=== PATIENT | male | born 1940 | race Caucasian/White ===

== ENCOUNTER 2021-04-26 14:57 | Inpatient (IN) | payer MEDICARE, SELFPAY ==
[2021-04-26] VITALS (30 sets, daily range): BP systolic 132–174; BP diastolic 66–99; PULSE 67–92; RESP 14–21; TEMP 36.2–36.8; O2SAT 92–97
[2021-04-26 15:09] LABS: Bilirubin Negative (Negative); Blood Negative (Negative); Clarity Clear (Clear); Glucose 100 mg/dL (Negative); Ketones Negative (Negative); Leukocyte Esterase Negative (Negative); Nitrite Positive (Negative); Specific Gravity <= 1.005 (1.005-1.025); pH 5.5 (5-8)
[2021-04-26 15:17] LABS: Bacteria Rare HPF (Negative); C & S Indicated? Yes; Casts Negative LPF (Negative); Crystals Negative HPF (Negative); Epithelial Cells Rare HPF (Negative); Mucus Negative (Negative); RBC Negative HPF (0-2); WBC 0-2 HPF (0-5)
--- NOTE | 2021-04-26 15:45 | DI.CT_ITS ---
Exam(s) CT RENAL COLIC WO EXAM: CT RENAL COLIC WO CLINICAL HISTORY: pain left flank, dysuria. TECHNIQUE: Imaging Protocol: Axial computed tomography images with coronal and sagittal reformatted images were created and reviewed. CONTRAST MATERIAL: Noncontrast COMPARISON: No exams were available for comparison FINDINGS: ABDOMEN: Lung Bases: Mild emphysematous changes. dependent changes. Enlarged heart. Liver: Normal attenuat ion. Cysts.. Gallbladder and biliary tract: Status post cholecystectomy. No radiodense calculus or dilation. Pancreas: Normal density, no calcifications or inflammatory process. Spleen: Calcifications. L. Kidneys: Normal size, contour and axis. No radiodense stones or obstructive uropathy. Cyst mid right kidney. Adrenal glands: No masses seen. Abdominal Aorta: Abdominal portion non-dilated. PELVIS: Bladder: Symmetric distention, no gross wall thickening. No stones or focal mass. Enlarged prostate . Bowel: No obstruction or bowel wall thickening. Severe diverticulosis lower descending and sigmoid co yolanda. No evidence of diverticulitis. Trace fluid in the low pelvis. Appendix normal. Stomach and s mall bowel unremarkable. No free air. Soft tissues: Tiny umbilical hernia containing fat. Small fatty containing hernia superior to the um bilicus. Bones: Degenerative changes and scoliosis. Mild to moderate T11 compression fracture with chronic ap pearance. IMPRESSION: Severe diverticulosis. No evidence of diverticulitis. No evidence of renal calculi or hydronephrosi s. Enlarged prostate. RADIATION DOSE DELIVERED: 950.75mGy.cm Total DLP DATA REPOSITORY: All CT scans at this facility are submitted to the National Radiology Data Registry (NRDR) Dose Index Registry (DIR) with the [employer] (A[employer]). RADIATION OPTIMIZATION: All CT scans at this facility use at least one of these dose optimization te chniques: automated exposure control; mA and/or kV adjustment per patient size (includes targeted exa ms where dose is matched to clinical indication); or iterative reconstruction.
[2021-04-26 15:49] LABS: Lactate 0.7 mmol/L (0.6-1.4)
[2021-04-26 15:51] LABS: Abs Immature Grans 0.08 10^3/uL (0.0-0.06); Absolute Lymphocyte Count 1.42 10^3/uL (1.2-3.4); Basophils % 0.3; Eosinophils % 0.3; HGB 13.4 g/dL (13.5-17.5); Immature Grans % 0.5; Lymphocytes % 9.6; MCH 30.8 pg (27.0-33.0); MCHC 33.5 % (32.0-36.0); MPV 10.5 fL (8.0-11.0); Monocytes % 6.6; Neutrophils % 82.7; Nucleated RBC 0 %; Platelet Count 106 10^3/uL (130-400); RBC 4.35 10^6/uL (4.36-5.78); RDW-SD 43.8 fL; WBC 14.76 10^3/uL (4.4-10.8)
[2021-04-26 15:55] LABS: Absolute Basophil Count 0.04 10^3/uL (0.0-0.2); Absolute Eosinophil Count 0.04 10^3/uL (0.0-0.7); Absolute Monocyte Count 0.97 10^3/uL (0.1-0.8); Absolute Neutrophil Count 12.21 10^3/uL (1.2-6.7)
[2021-04-26] MEDS: cefTRIAXone 2 GM/50 ML BAG IVPB (16:12)
--- NOTE | 2021-04-26 16:12 | ED.GENADUL_ITS ---
Discharge Plan Disposition Patient Disposition: [facility] INPATIENT Condition: Serious Discharge Details Chief Complaint: Urinary Clinical Impression: Acute pyelonephritis, Prostate enlargement Primary Care Provider: Matt Soler ED Provider: Jack Saha Home Meds and New Rx's Prescriptions: No Action VITAMIN B-12 1,000 MCG/ML VIAL 1 ml IM QMO. 90 Days RF: 3 multivitamin Tablet 1 tab PO QAM RF: 0 ciprofloxacin HCl 500 mg Tablet 500 mg PO BID RF: 0 diltiazem HCl 120 mg Capsule,Extended Release 12 Hr 120 mg PO BID RF: 0 phenazopyridine [Pyridium] 100 mg Tablet 200 mg PO TID PRNRF: 0 aspirin 81 mg Tablet 81 mg PO QPM RF: 0 metoprolol succinate 50 mg Tablet Extended Release 24 Hr 50 mg PO DAILY RF: 0 primidone 250 mg Tablet 250 mg PO BID RF: 0 metoprolol succinate 25 mg Tablet Extended Release 24 Hr 25 mg PO DAILY RF: 0 lisinopril 40 mg Tablet 40 mg PO DAILY RF: 0 Medical Decision Making 0??80-year-old male with history of renal stones, here with left flank pain, dysuria, fever and chills. Patient has been on ciprofloxacin since he was seen and treated for urinary tract infection at outside hospital ED yesterday. He received 3 doses of antibiotic and symptoms have persisted. Concern for pyonephritis and potential resistance to ciprofloxacin. Consider obstructed stone. Plan to obtain CT renal protocol. I will initiate treatment with broad-spectrum antibiotic ceftriaxone 2 g IV. Will initiate IV fluid. I offered analgesic and patient declined. Initial labs reviewed and lactate normal. Leukocytosis noted. 1747 --CT of the abdomen pelvis was interpreted by radiology:IMPRESSION: 1. Bilateral perinephric stranding. No evidence for nephrolithiasis or hydronephrosis. 2. Moderate to severe enlargement of the prostate which may be invading the base of the urinary bladder. 3. Edema/inflammatory changes of the mesentery. Pain that is patient reassessed and noted to be feeling a little bit better after IV fluid and antibiotic. Plan to admit for continued IV antibiotics and will benefit from urology consultation. I called and spoke with the hospitalist, Dr. Romero, I discussed ED presentation course including diagnostics, he will admit the patient. Medical Records Medical records reviewed: Yes I reviewed the patient's medical records. Medical records narrative: I obtained emergency department note from 04/25/21 urinalysis revealed WBCs 25-50, RBC 0-3, positive nitrite, 0-3 squamous epithelial cells. HPI General Mode of arrival: ambulatory . Date/Time Provider Initiated Documentation: 04/26/21 15:01 . Limitations to Documentation: no limitations . Information obtained by: patient . HPI Narrative: 80-year-old male with history of renal stone, here with chief complaint of flank pain. Patient has left flank/back pain that started a couple weeks ago. Pain was initially intermittent and now more persistent. Pain worse with certain positions including bending and twisting. Pain is described as sharp. He has associated fever, chills and dysuria over the past few days. He was seen at [facility] emergency department yesterday and was found to have urinary tract infection and was started on ciprofloxacin. Patient has taken 3 doses of ciprofloxacin and symptoms are persisting today. He feels dehydrated. No nausea or vomiting. He continues to have dysuria. Related Data Home Medications Medication Instructions Recorded Confirmed Vitamin B-12 1 ml IM QMO. 90 Days 09/27/08 04/26/21 aspirin 81 mg PO QPM 04/26/21 04/26/21 ciprofloxacin HCl 500 mg PO BID 04/26/21 04/26/21 diltiazem HCl 120 mg PO BID 04/26/21 04/26/21 lisinopril 40 mg PO DAILY 04/26/21 04/26/21 metoprolol succinate 25 mg PO DAILY 04/26/21 04/26/21 metoprolol succinate 50 mg PO DAILY 04/26/21 04/26/21 multivitamin 1 tab PO QAM 04/26/21 04/26/21 phenazopyridine [Pyridium] 200 mg PO TID PRN 04/26/21 04/26/21 primidone 250 mg PO BID 04/26/21 04/26/21 Allergies Allergy/AdvReac Type Severity Reaction Status Date / Time No Known Allergies Allergy Unverified 04/26/21 15:12 General Stated Complaint: Urinary VITA: 3 Review of Systems All systems reviewed & are unremarkable except as noted in HPI and below Constitutional Constitutional: Reports chills and Reports fever(s) Gastrointestinal Gastrointestinal: Denies nausea and Denies vomiting [facility] Medical History (Updated 04/26/21 @ 17:50 by Jack Saah MD) Atrial fibrillation Renal stones Social History Smoking/Tobacco Use Status: Former Tobacco Use Smoking risk assessment performed?: Yes Alcohol Intake: current Alcohol Intake frequency: 0-2 drinks per day Drug use: Never Substance use type: does not use Do you feel safe at home: Yes Do you feel safe in your relationship?: Yes Exam Const General: cooperative and no acute distress HENMT Mouth: mucous membranes dry Eyes Conjunctivae: normal conjunctivae Sclera: normal sclerae Neck Neck: full ROM Resp Auscultation: clear to auscultation bilaterally, no rales, no rhonchi and no wheezes Cardio Rate: regular rate and not tachycardic Rhythm: regular rhythm GI Palpation: soft, not firm, no guarding, no masses, not rigid and nontender Skin General skin exam: no rashes or lesions noted Neuro General: patient alert, patient awake, patient oriented x3 and tone normal Extrem General: no edema Psych Appearance: grossly normal Mental Status: mental status grossly normal Course Vital Signs Vital signs: Vital Signs Temperature 36.8 C 04/26/21 15:02 Pulse 90 04/26/21 15:02 Respiratory Rate 16 04/26/21 15:02 Blood Pressure 153/82 H 04/26/21 15:02 Pulse Oximetry 95 04/26/21 15:02 Temperature 36.8 C 04/26/21 15:02 Temperature Source Skin 04/26/21 15:02 Pulse 90 04/26/21 15:02 Respiratory Rate 16 04/26/21 15:02 Blood Pressure 153/82 H 04/26/21 15:02 Blood Pressure Position Sitting 04/26/21 15:02 Pulse Oximetry 95 04/26/21 15:02 Oxygen Delivery Method Room Air 04/26/21 15:02 Oxygen Flow Rate 0 04/26/21 15:02 Pain Level 9 04/26/21 15:02 Lab/Test Results Lab/Test Results: 04/26/21 16:05 Blood Blood Culture - Pending 04/26/21 15:39 Blood Blood Culture - Pending 04/26/21 15:00 Urine - Reflex from Ua Urine Culture - Pending Laboratory Tests Range/Units 04/26/21 04/26/21 04/26/21 15:00 15:39 15:39 WBC (4.4-10.8) 10^3/uL 14.76 H RBC (4.36-5.78) 10^6/uL 4.35 L Hgb (13.5-17.5) g/dL 13.4 L Hct (40.0-50.0) % 40.0 MCV (80-95) fL 92.0 MCH (27.0-33.0) pg 30.8 MCHC (32.0-36.0) % 33.5 RDW (11.8-14.1) % 13.0 Plt Count (130-400) 10^3/uL 106 L MPV (8.0-11.0) fL 10.5 Immature Gran % 0.5 Neutrophils % 82.7 Lymphocytes % 9.6 Monocytes % 6.6 Eosinophils % 0.3 Basophils % 0.3 Nucleated RBC % % 0 Absolute Neutrophils (1.2-6.7) 10^3/uL 12.21 H Absolute Lymphocytes (1.2-3.4) 10^3/uL 1.42 Absolute Monocytes (0.1-0.8) 10^3/uL 0.97 H Absolute Eosinophils (0.0-0.7) 10^3/uL 0.04 Absolute Basophils (0.0-0.2) 10^3/uL 0.04 VBG Lactate (0.6-1.4) mmol/L 0.7 Urine Color (Yellow) Dark Yellow Urine Clarity (Clear) Clear Urine pH (5-8) 5.5 Ur Specific [place] (1.005-1.025) <= 1.005 Urine Protein (Negative) mg/dL Negative Urine Ketones (Negative) mg/dL Negative Urine Blood (Negative) Negative Urine Nitrite (Negative) Positive H Urine Bilirubin (Negative) Negative Urine Urobilinogen (Up TO 0.2) EU/dL 1.0 H Ur Leukocyte Esterase (Negative) Negative Urine RBC (0-2) HPF Negative Urine WBC (0-5) HPF 0-2 Ur Epithelial Cells (Negative) HPF Rare Urine Crystals (Negative) HPF Negative Urine Bacteria (Negative) HPF Rare Urine Casts (Negative) LPF Negative Urine Mucus (Negative) Negative Ur Culture Indicated? Yes Urine Glucose (Negative) mg/dL 100
[2021-04-26] MEDS: Normal Saline 1,000 ML 150 ML IV ×2 (16:13→23:48)
[2021-04-26 16:30] LABS: ALT 36 U/L (16-63); AST 19 U/L (15-37); Albumin 3.5 g/dL (3.4-5.0); Alkaline Phosphatase 96 U/L (46-116); Anion Gap 6.8 mmol/L (3-11); BUN 15 mg/dL (7-18); Bilirubin, Total 0.9 mg/dL (0.2-1.0); CO2 28.2 mmol/L (21.0-32.0); Calcium 8.2 mg/dL (8.5-10.1); Chloride 103 mmol/L (98-107); Glucose 105 mg/dL (74-106); Potassium 3.6 mmol/L (3.5-5.1); Sodium 138 mmol/L (136-145); Total Protein 7.3 g/dL (6.4-8.2)
--- NOTE | 2021-04-26 17:02 | DI.VRAD_ITS ---
PROCEDURE INFORMATION: Exam: CT Abdomen And Pelvis Without Contrast Exam date and time: 04/26/2021 4:00 PM Age: 80 years old Clinical indication: Patient HX: Left flank pain, dysuria, HX of kidney stones, TECHNIQUE: Imaging protocol: Computed tomography of the abdomen and pelvis without contrast. Radiation optimization: All CT scans at this facility use at least one of these dose optimization techniques: automated exposure control; mA and/or kV adjustment per patient size (includes targeted exams where dose is matched to clinical indication); or iterative reconstruction. COMPARISON: No relevant prior studies available. FINDINGS: Limitations: Evaluation of the solid organs and vasculature is limited wiithout IV contrast. Lungs: There are ground-glass opacities at the lung bases which may represent pulmonary vascular congestion. Liver: 3.5 cm cyst in the left lobe of the liver. 16 mm cyst in the inferior right lobe of the liver. No evidence for a mass. Gallbladder and bile ducts: There has been a cholecystectomy. Pancreas: Unremarkable. No ductal dilation. Spleen: There is a calcification in the spleen. No splenomegaly. Adrenal glands: Normal. No mass. Kidneys and ureters: Bilateral perinephric stranding. No evidence for nephrolithiasis or hydronephrosis. There is a cyst in the right kidney. Stomach and bowel: Unremarkable. No obstruction. No mucosal thickening. Appendix: No evidence of appendicitis. Intraperitoneal space: There is edema/inflammatory changes of the mesentery. No free air. No significant fluid collection. Vasculature: The vasculature demonstrates diffuse moderate atherosclerotic calcification. There is no aortic aneurysm. Lymph nodes: Unremarkable. No enlarged lymph nodes. Urinary bladder: The enlarged prostate may be invading the base of the urinary bladder. Reproductive: The prostate demonstrates moderate to severe nonspecific enlargement. Bones/joints: There are degenerative changes of the lumbosacral spine with levoscoliosis. There is T11 compression deformity with loss of 50-60% of vertebral body height. Soft tissues: Unremarkable. IMPRESSION: 1. Bilateral perinephric stranding. No evidence for nephrolithiasis or hydronephrosis. 2. Moderate to severe enlargement of the prostate which may be invading the base of the urinary bladder. 3. Edema/inflammatory changes of the mesentery. Dictated and Authenticated by: Matt Chao MD. Ordering:DUSTIN Santiago MD
[2021-04-26 17:49] LABS: Source Nasal/Nares
--- NOTE | 2021-04-26 18:22 | HPE_ITS ---
Date of service: 04/26/21 Time of Service: 18:22 Assessment and Plan Assessment and plan (1) Acute pyelonephritis: Start date: 04/26/21 Status: Acute Assessment and plan: This is an 80-year-old gentleman presenting with flank pain and having imaging revealing bilateral pyelonephritis. He was placed on Rocephin 2 g IV with cultures pending. He feels better with IV hydration. He is voiding without change in chronic symptoms and feels that he is emptying h is bladder. There were no signs of urinary retention but he does have a enlarged prostate. Prostate exam was not performed. Patient has been on Cipro as an outpatient with urine obtained in the ED apparently clear but systemic symptoms and pain persisting with positive imaging finding of acute py elonephritis. Patient does have an enlarged prostate but appears to be emptying well. He has been urinating throughout the night with IV hydration. (2) Prostate enlargement: Status: Chronic Assessment and plan: Patient appears to be urinating well at this time but should consider prostate exam and possible urological referral if question of obstruction of the bladder outlet which may prompt recurrent UTIs of the upper tract. (3) Chronic atrial fibrillation: Status: Chronic Assessment and plan: Patient's heart rate appears to be controlled with blood pressure slightly elevated. Continue outpatient medical therapy with diltiazem and metoprolol. Patient is not anticoagulated. History of Present Illness History of Present Illness Chief Complaint: Fever with dysuria and flank pain Narrative: This is an 80-year-old male patient reported to the ED with continued flank pain more over his right than left side. He does have a history of renal lithiasis with CT scan of the abdomen and pelvis in the ED revealing no obstruction though the prostate was enlarged and slightly invading the base of the bladder. Is been having symptoms for couple weeks but it escalated just prior to admission with patient having associated fevers and chills with dy suria. He was on ciprofloxacin and failing therapy though this was just initiated. He has been seen in [facility] emergency department the day prior to presenting to this ED. The patient has had no GI symptoms and felt dehydrated with decreased intake. When I saw the patient after some IV hydration he was feeling better. His flank pain was resolving. CT scan did reveal pyelonephritis with some inflammatory changes in the abdomen. As stated there was no obstruction. The patient had no documented fever in the ED though he did have a slightly elevated WBC. Was symptomatic with flank pain. His lactate was negative and his urinalysis appeared benign with cultures as an outpatient pending. Patient was recultured. Review of systems was pertinent for patient having some discomfort over his back worsening with movement. He had no radicular symptoms in his lower extremities. He denied any spinal tenderness. Overnight he has been voiding well on IV hydration. His creatinine was not elevated upon admission. Review of Systems Narrative: 13 point review of systems otherwise unrevealing or stable. [facility] Medical History Atrial fibrillation Renal stones Social History Smoking/Tobacco Use Status: Former Tobacco Use Smoking risk assessment performed?: Yes Alcohol Intake: current Alcohol Intake frequency: 0-2 drinks per day Drug use: Never Substance use type: does not use Do you feel safe at home: Yes Do you feel safe in your relationship?: Yes Meds Allergies and Home Medications Allergies Allergy/AdvReac Type Severity Reaction Status Date / Time No Known Allergies Allergy Unverified 04/26/21 15:12 Home Medications Medication Instructions Recorded Confirmed Type Vitamin B-12 1 ml IM QMO. 90 Days 09/27/08 04/26/21 History aspirin 81 mg PO QPM 04/26/21 04/26/21 History ciprofloxacin HCl 500 mg PO BID 04/26/21 04/26/21 History diltiazem HCl 120 mg PO BID 04/26/21 04/26/21 History lisinopril 40 mg PO DAILY 04/26/21 04/26/21 History metoprolol succinate 25 mg PO DAILY 04/26/21 04/26/21 History metoprolol succinate 50 mg PO DAILY 04/26/21 04/26/21 History multivitamin 1 tab PO QAM 04/26/21 04/26/21 History phenazopyridine [Pyridium] 200 mg PO TID PRN 04/26/21 04/26/21 History primidone 250 mg PO BID 04/26/21 04/26/21 History Exam Narrative Exam Narrative: General: Patient appears appropriate for age, he is hard of hearing, alert and oriented x3 and in no acute distress. HEENT: Normocephalic with balding, eyes with pupils equal and reactive to light symmetrically, extraocular movement intact and sclera anicteric. Oropharynx with dry mucosa. Neck: Supple without JVD. Lungs: Fair aeration and clear to auscultation percussion. Back: Slightly stooped posture with no CVA tenderness. Decreased range of motion with loss of lumbar lordotic curve. Breast: Exam deferred. Heart: Irregular regular rhythm no appreciable murmurs or gallop. Normal rate., soft nontender palpation with no palpable hepatosplenomegaly. Abdomen: Normal contour, soft to palpation with no palpable hepatosplenomegaly. Bowel sounds positive all quadrants. No tenderness over the kidneys. No masses palpated. No guarding or rebound. Genitalia/rectal: Exam deferred. Extremities: Without clubbing, cyanosis or pitting edema. Peripheral pulses intact. Arthritic changes of the lower extremities. Skin: Normal color, warm and dry. Neuro: Cranial nerves II through XII grossly intact with decreased hearing acuity, no focalizing motor deficits. Patient has no tremor. Psych: Normal mood and affect, remote and recent memory appear to be grossly intact. No abnormal thought processes. Results Imaging Imaging Studies: Exam: CT Abdomen And Pelvis Without Contrast Exam date and time: 04/26/2021 4:00 PM Age: 80 years old Clinical indication: Patient HX: Left flank pain, dysuria, HX of kidney stones, TECHNIQUE: Imaging protocol: Computed tomography of the abdomen and pelvis without contrast. Radiation optimization: All CT scans at this facility use at least one of these dose optimization techniques: automated exposure control; mA and/or kV adjustment per patient size (includes targeted exams where dose is matched to clinical indication); or iterative reconstruction. COMPARISON: No relevant prior studies available. FINDINGS: Limitations: Evaluation of the solid organs and vasculature is limited wiithout IV contrast. Lungs: There are ground-glass opacities at the lung bases which may represent pulmonary vascular congestion. Liver: 3.5 cm cyst in the left lobe of the liver. 16 mm cyst in the inferior right lobe of the liver. No evidence for a mass. Gallbladder and bile ducts: There has been a cholecystectomy. Pancreas: Unremarkable. No ductal dilation. Spleen: There is a calcification in the spleen. No splenomegaly. Adrenal glands: Normal. No mass. Kidneys and ureters: Bilateral perinephric stranding. No evidence for nephrolithiasis or hydronephrosis. There is a cyst in the right kidney. Stomach and bowel: Unremarkable. No obstruction. No mucosal thickening. Appendix: No evidence of appendicitis. Intraperitoneal space: There is edema/inflammatory changes of the mesentery. No free air. No significant fluid collection. Vasculature: The vasculature demonstrates diffuse moderate atherosclerotic calcification. There is no aortic aneurysm. Lymph nodes: Unremarkable. No enlarged lymph nodes. Urinary bladder: The enlarged prostate may be invading the base of the urinary bladder. Reproductive: The prostate demonstrates moderate to severe nonspecific enlargement. Bones/joints: There are degenerative changes of the lumbosacral spine with levoscoliosis. There is T11 compression deformity with loss of 50-60% of vertebral body height. Soft tissues: Unremarkable. IMPRESSION: 1. Bilateral perinephric stranding. No evidence for nephrolithiasis or hydronephrosis. 2. Moderate to severe enlargement of the prostate which may be invading the base of the urinary bladder. 3. Edema/inflammatory changes of the mesentery. Dictated and Authenticated by: Matt Chao MD. Labs Result diagrams: 04/27/21 06:10 04/27/21 06:10 Labs: Laboratory Results - last 24 hr 04/26/21 04/26/21 04/26/21 15:00 15:39 15:39 WBC RBC Hgb Hct MCV MCH MCHC RDW Plt Count MPV Immature Gran % Neutrophils % Lymphocytes % Monocytes % Eosinophils % Basophils % Nucleated RBC % Absolute Neutrophils Absolute Lymphocytes Absolute Monocytes Absolute Eosinophils Absolute Basophils VBG Lactate 0.7 Sodium 138 Potassium 3.6 Chloride 103 Carbon Dioxide 28.2 Anion Gap 6.8 BUN 15 Creatinine 1.0 Estimated GFR/1.73 m2 >= 60.00 Glucose 105 Calcium 8.2 L Total Bilirubin 0.9 AST 19 ALT 36 Alkaline Phosphatase 96 Total Protein 7.3 Albumin 3.5 Urine Color Dark Yellow Urine Clarity Clear Urine pH 5.5 Ur Specific [place] <= 1.005 Urine Protein Negative Urine Ketones Negative Urine Blood Negative Urine Nitrite Positive H Urine Bilirubin Negative Urine Urobilinogen 1.0 H Ur Leukocyte Esterase Negative Urine RBC Negative Urine WBC 0-2 Ur Epithelial Cells Rare Urine Crystals Negative Urine Bacteria Rare Urine Casts Negative Urine Mucus Negative Ur Culture Indicated? Yes Urine Glucose 100 COVID-19 Source 04/26/21 04/26/21 15:39 17:45 WBC 14.76 H RBC 4.35 L Hgb 13.4 L Hct 40.0 MCV 92.0 MCH 30.8 MCHC 33.5 RDW 13.0 Plt Count 106 L MPV 10.5 Immature Gran % 0.5 Neutrophils % 82.7 Lymphocytes % 9.6 Monocytes % 6.6 Eosinophils % 0.3 Basophils % 0.3 Nucleated RBC % 0 Absolute Neutrophils 12.21 H Absolute Lymphocytes 1.42 Absolute Monocytes 0.97 H Absolute Eosinophils 0.04 Absolute Basophils 0.04 VBG Lactate Sodium Potassium Chloride Carbon Dioxide Anion Gap BUN Creatinine Estimated GFR/1.73 m2 Glucose Calcium Total Bilirubin AST ALT Alkaline Phosphatase Total Protein Albumin Urine Color Urine Clarity Urine pH Ur Specific [place] Urine Protein Urine Ketones Urine Blood Urine Nitrite Urine Bilirubin Urine Urobilinogen Ur Leukocyte Esterase Urine RBC Urine WBC Ur Epithelial Cells Urine Crystals Urine Bacteria Urine Casts Urine Mucus Ur Culture Indicated? Urine Glucose COVID-19 Source Nasal/Nares Last Vital Signs Temp 36.8 C 04/26/21 15:02 Pulse 69 04/26/21 16:49 Resp 16 04/26/21 15:02 BP 142/75 H 04/26/21 16:49 Pulse Ox 94 04/26/21 17:10
[2021-04-26 18:46] LABS: COVID-19 PCR Negative (Negative)
--- NOTE | 2021-04-26 19:11 | NUR.NOTE ---
Report from YANDY Mcdermott for continued care. Report to YANDY Kothari, Med surg. Room 229.Nursing Note:
[2021-04-26] MEDS: Primidone 250 MG TAB PO (23:49)
[2021-04-26] MEDS: Aspirin 81 MG CHEW PO (23:49)
[2021-04-26] MEDS: dilTIAZem CD 120 MG CAPCR PO (23:49)
[2021-04-26] MEDS: Heparin 5,000 UNITS/ML VIAL 5000 UNITS SC (23:49)
[2021-04-27] VITALS (11 sets, daily range): BP systolic 132–150; BP diastolic 80–91; PULSE 60–84; RESP 17–18; TEMP 35.9–36.7; O2SAT 95–98
[2021-04-27] MEDS: Normal Saline 1,000 ML 150 ML IV ×2 (06:09→14:01)
[2021-04-27 07:02] LABS: Abs Immature Grans 0.05 10^3/uL (0.0-0.06); Absolute Basophil Count 0.05 10^3/uL (0.0-0.2); Absolute Eosinophil Count 0.14 10^3/uL (0.0-0.7); Absolute Lymphocyte Count 0.95 10^3/uL (1.2-3.4); Absolute Monocyte Count 0.67 10^3/uL (0.1-0.8); Absolute Neutrophil Count 7.43 10^3/uL (1.2-6.7); Basophils % 0.5; Eosinophils % 1.5; HCT 36.8 % (40.0-50.0); HGB 12.3 g/dL (13.5-17.5); Immature Grans % 0.5; Lymphocytes % 10.2; MCHC 33.4 % (32.0-36.0); MCV 92.7 fL (80-95); MPV 10.8 fL (8.0-11.0); Monocytes % 7.2; Nucleated RBC 0 %; RBC 3.97 10^6/uL (4.36-5.78); RDW 12.9 % (11.8-14.1); RDW-SD 44.1 fL; WBC 9.27 10^3/uL (4.4-10.8)
[2021-04-27 07:20] LABS: Neutrophils % 80.1; Platelet Count 96 10^3/uL (130-400)
[2021-04-27 07:21] LABS: Diff Comment Diff Reviewed; RBC Morphology Normal
[2021-04-27 07:22] LABS: ALT 33 U/L (16-63); AST 18 U/L (15-37); Albumin 3.1 g/dL (3.4-5.0); Alkaline Phosphatase 79 U/L (46-116); Anion Gap 7.8 mmol/L (3-11); BUN 13 mg/dL (7-18); Bilirubin, Total 0.6 mg/dL (0.2-1.0); CO2 27.2 mmol/L (21.0-32.0); Calcium 7.9 mg/dL (8.5-10.1); Chloride 107 mmol/L (98-107); Glucose 90 mg/dL (74-106); Potassium 3.7 mmol/L (3.5-5.1); Sodium 142 mmol/L (136-145); Total Protein 6.1 g/dL (6.4-8.2)
[2021-04-27] MEDS: Metoprolol CR 25 MG TABCR PO (08:05)
[2021-04-27] MEDS: Lisinopril 20 MG TAB 40 MG PO (08:05)
[2021-04-27] MEDS: dilTIAZem CD 120 MG CAPCR PO ×2 (08:05→20:38)
[2021-04-27] MEDS: Metoprolol CR 50 MG TABCR PO (08:05)
[2021-04-27] MEDS: Primidone 250 MG TAB PO ×2 (08:13→20:38)
[2021-04-27] MEDS: cefTRIAXone 2 GM/50 ML BAG IVPB (11:41)
--- NOTE | 2021-04-27 16:24 | W.PM.PROGNOT ---
Date of Service Date of service: 04/27/21 Time of Service: 16:24 Assessment and Plan Assessment and plan (1) Acute pyelonephritis: Status: Acute Assessment and plan: dc iv hydration. no evidence of MARISOL nor dehydration. cont. Rocephin 2 gm daily, pending blood cultures and urine cultures. He needs urology follow up regarding his prostate. (2) Prostate enlargement: Status: Chronic Assessment and plan: Patient appears to be urinating well at this time but should consider prostate exam and possible urological referral if question of obstruction of the bladder outlet which may prompt recurrent UTIs of the upper tract. (3) Chronic atrial fibrillation: Status: Chronic Assessment and plan: Patient's heart rate appears to be controlled with blood pressure slightly elevated. Continue outpatient medical therapy with diltiazem and metoprolol. Patient is not anticoagulated. Subjective Subjective Interval history since last seen: David states that his flank pains are better although still some residual on the right. He has dysuria. Given his abnormal prostate findings on his CT scan ( severe prostate enlargement), I suspect that he is not completely emptying his urinary bladder leading to chronic UTI and pyelonephritis. No hydronephrosis nor nephrolithiasis was seen on CT. He is afebrile and his WBC count has come down from 14,700 to 9200 today. Blood culture results are still pending. He will remain hospitalized until his blood culture results come back negative then we can pick an oral antibiotics to treat prostate and kidneys. He needs urology follow up. Exam Narrative Exam Narrative: Elderly white male who is sitting up in his chair watching TV. He is alert and oriented x 3 Lungs: clear Heart: irregularly, irregular @ controlled rate Abdomen: non-distended, soft, nontender Flanks: mild right CVA tenderness w/ percussion; none on the left Objective Last Vital Signs Temp 36.6 C 04/27/21 08:00 Pulse 69 04/27/21 08:00 Resp 18 04/27/21 08:00 BP 148/84 H 04/27/21 08:00 Pulse Ox 96 04/27/21 08:00 Laboratory Results - last 24 hr 04/26/21 04/26/21 04/27/21 15:39 17:45 06:10 WBC RBC Hgb Hct MCV MCH MCHC RDW Plt Count MPV Immature Gran % Neutrophils % Lymphocytes % Monocytes % Eosinophils % Basophils % Nucleated RBC % Absolute Neutrophils Absolute Lymphocytes Absolute Monocytes Absolute Eosinophils Absolute Basophils RBC Morphology Sodium 138 142 Potassium 3.6 3.7 Chloride 103 107 Carbon Dioxide 28.2 27.2 Anion Gap 6.8 7.8 BUN 15 13 Creatinine 1.0 1.0 Estimated GFR/1.73 m2 >= 60.00 >= 60.00 Glucose 105 90 Calcium 8.2 L 7.9 L Total Bilirubin 0.9 0.6 AST 19 18 ALT 36 33 Alkaline Phosphatase 96 79 Total Protein 7.3 6.1 L Albumin 3.5 3.1 L COVID-19 Source Nasal/Nares SARS-CoV-2 (PCR) Negative 04/27/21 06:10 WBC 9.27 D RBC 3.97 L Hgb 12.3 L Hct 36.8 L MCV 92.7 MCH 31.0 MCHC 33.4 RDW 12.9 Plt Count 96 L MPV 10.8 Immature Gran % 0.5 Neutrophils % 80.1 Lymphocytes % 10.2 Monocytes % 7.2 Eosinophils % 1.5 Basophils % 0.5 Nucleated RBC % 0 Absolute Neutrophils 7.43 H Absolute Lymphocytes 0.95 L Absolute Monocytes 0.67 Absolute Eosinophils 0.14 Absolute Basophils 0.05 RBC Morphology Normal Sodium Potassium Chloride Carbon Dioxide Anion Gap BUN Creatinine Estimated GFR/1.73 m2 Glucose Calcium Total Bilirubin AST ALT Alkaline Phosphatase Total Protein Albumin COVID-19 Source SARS-CoV-2 (PCR)
[2021-04-27] MEDS: Phenazopyridine 200 MG TAB PO (20:38)
[2021-04-27] MEDS: Aspirin 81 MG CHEW PO (20:38)
[2021-04-28 03:27] VITALS: BP 143/87; PULSE 66; RESP 18; TEMP 36.1; O2SAT 98
[2021-04-28 07:47] LABS: Abs Immature Grans 0.02 10^3/uL (0.0-0.06); Absolute Basophil Count 0.04 10^3/uL (0.0-0.2); Absolute Eosinophil Count 0.18 10^3/uL (0.0-0.7); Absolute Lymphocyte Count 1.15 10^3/uL (1.2-3.4); Absolute Monocyte Count 0.42 10^3/uL (0.1-0.8); Absolute Neutrophil Count 4.41 10^3/uL (1.2-6.7); Basophils % 0.6; Eosinophils % 2.9; HCT 39.3 % (40.0-50.0); HGB 13.2 g/dL (13.5-17.5); Immature Grans % 0.3; Lymphocytes % 18.5; MCH 30.7 pg (27.0-33.0); MCHC 33.6 % (32.0-36.0); MCV 91.4 fL (80-95); MPV 10.7 fL (8.0-11.0); Monocytes % 6.8; Neutrophils % 70.9; Nucleated RBC 0 %; Platelet Count 119 10^3/uL (130-400); RDW 12.8 % (11.8-14.1); RDW-SD 42.6 fL; WBC 6.22 10^3/uL (4.4-10.8)
[2021-04-28] MEDS: dilTIAZem CD 120 MG CAPCR PO (08:07)
[2021-04-28] MEDS: Metoprolol CR 50 MG TABCR PO (08:07)
[2021-04-28] MEDS: Primidone 250 MG TAB PO (08:07)
[2021-04-28] MEDS: Phenazopyridine 200 MG TAB PO ×2 (08:07→14:04)
[2021-04-28] MEDS: Metoprolol CR 25 MG TABCR PO (08:07)
[2021-04-28] MEDS: Lisinopril 20 MG TAB 40 MG PO (08:07)
[2021-04-28 08:19] LABS: Anion Gap 7.4 mmol/L (3-11); BUN 13 mg/dL (7-18); C-Reactive Protein 7.52 mg/dL (0.0-0.3); CO2 27.6 mmol/L (21.0-32.0); CREATININE 0.9 mg/dL (0.70-1.30); Calcium 8.6 mg/dL (8.5-10.1); Chloride 106 mmol/L (98-107); Glucose 94 mg/dL (74-106); Potassium 4.2 mmol/L (3.5-5.1); Sodium 141 mmol/L (136-145)
[2021-04-28 08:25] LABS: Procalcitonin < 0.1 ng/mL
[2021-04-28 09:13] VITALS: BP 171/93; PULSE 67; RESP 16; TEMP 36.5; O2SAT 96
[2021-04-28] MEDS: cefTRIAXone 2 GM/50 ML BAG IVPB (11:50)
[2021-04-28] MEDS: Normal Saline 500 ML 100 ML IV (11:50)
[2021-04-28 12:42] VITALS: BP 158/85; PULSE 66; RESP 18; TEMP 36.1; O2SAT 99
[2021-04-28 15:00] VITALS: PULSE 69
[2021-04-28 16:12] VITALS: BP 154/92; PULSE 71; RESP 16; TEMP 36.1; O2SAT 98
--- NOTE | 2021-04-28 16:15 | W.PM.PROGNOT ---
Date of Service Date of service: 04/28/21 Time of Service: 16:15 Assessment and Plan Assessment and plan (1) Prostatitis: Status: Acute Assessment and plan: prostate is markedly enlarged, boggy and tender although not exquisitely so (i.e. no chandelier sign); rest of rectal exam was negative i.e., negative for occult blood and normal rectal tone. I will put him on Levaquin 750 mg po daily x 10 days along w/ pyridium which helped w/ his dysuria. He will also go on tamsulosin 0.4 mg daily. I will have him follow up w/ Dr. Jackson in [place], [place] who is his urologist. Qualifiers: Prostatitis type: acute Qualified Code(s): N41.0 - Acute prostatitis (2) Prostate enlargement: Status: Chronic Assessment and plan: I think that this is just BPH but he will need re-evaluation w/ prostate exam and PSA once infection has cleared. (3) Acute pyelonephritis: Status: Acute Assessment and plan: Patient had bilateral flank pain on admission along w/ perinephric stranding on CT scan however, he never had any nephrolithiasis nor any hydroureters so I do not feel that he had any acute obstruction but given (4) Chronic atrial fibrillation: Status: Chronic Assessment and plan: continue home meds. follow up w/ his PCP, Dr. Moreno at [facility] next week. Subjective Subjective Interval history since last seen: patient is doing well. No abdominal pain and no nausea or vomiting. Voiding is improving. Dysuria has resolved. Flank pain is gone. Exam GI Rectal Exam: visual inspection normal, normal sphincter tone, heme negative stool and prostate abnormal boggy, enlarged and tender; no nodules General: bimanual renal exam normal bilaterally and No CVA tenderness Objective Last Vital Signs Temp 36.1 C L 04/28/21 16:12 Pulse 71 04/28/21 16:12 Resp 16 04/28/21 16:12 BP 154/92 H 04/28/21 16:12 Pulse Ox 98 04/28/21 16:12 Laboratory Results - last 24 hr 04/28/21 04/28/21 04/28/21 06:30 06:30 06:30 WBC 6.22 D RBC 4.30 L Hgb 13.2 L Hct 39.3 L MCV 91.4 MCH 30.7 MCHC 33.6 RDW 12.8 Plt Count 119 L MPV 10.7 Immature Gran % 0.3 Neutrophils % 70.9 Lymphocytes % 18.5 Monocytes % 6.8 Eosinophils % 2.9 Basophils % 0.6 Nucleated RBC % 0 Absolute Neutrophils 4.41 Absolute Lymphocytes 1.15 L Absolute Monocytes 0.42 Absolute Eosinophils 0.18 Absolute Basophils 0.04 Sodium 141 Potassium 4.2 Chloride 106 Carbon Dioxide 27.6 Anion Gap 7.4 BUN 13 Creatinine 0.9 Estimated GFR/1.73 m2 >= 60.00 Glucose 94 Calcium 8.6 C-Reactive Protein 7.52 H Procalcitonin < 0.1
[2021-04-28] MEDS: levoFLOXacin 500 MG, levoFLOXacin 250 MG 750 MG PO ×2 (16:35→17:26)
--- NOTE | 2021-04-28 17:39 | PDOC.CMDIS ---
- If Service Date Differs Date of service: 04/28/21 Time of Service: 17:39 LACE Index Scoring Tool - Questions: Length of Stay (in days): 1 Acuity (Admit via E.D.?): Yes E.D. Visits: 1 - Answers: Total Score: 5 Risk of Readmission: Low Risk Care Management Discharge Reason for Hospitalization: pyelonephritis Discharge Plan: David will be discharged home with no new services. He will follow up with his community providers and plan of care and transport with family. Patient/Family Education Needs: Review of discharge instructions, medications, limitations, follow up plan Ask Me Three
--- NOTE | 2021-04-28 17:41 | INITIAL_ITS ---
- If Service Date Differs Date of service: 04/27/21 Time of Service: 14:00 Care Management Initial Assess REASON FOR HOSPITALIZATION:: pyelonephritis PAST MEDICAL HISTORY/PAST SURGICAL HISTORY:: Medical History . Atrial fibrillation. Renal stones PREVIOUS FUNCTIONAL STATUS/SOCIAL/FAMILY SUPPORTS:: David lives on a farm in [facility] with his Rosalia. 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 David has 2 children who live locally and 4 grandchildren. He is independent at baseline and receives no community services. CURRENT FUNCTIONAL STATUS:: David was sitting up when CM met with him. He was pleasant and stated that he is feeling muchg better. He does not anticipate the need for any services at discharge. ADVANCE DIRECTIVES:: none on file Has patient been provided with info about the portal/API?: Yes Did the patient sign up for the portal?: No INSURANCE COVERAGE / FINANCIAL ISSUES:: Medicare. AARP CURRENT HOME/COMMUNITY SERVICES/EQUIPMENT:: none PRIMARY CARE PHYSICIAN:: Matt Soler POTENTIAL DISCHARGE NEEDS:: follow up with PCP and plan of care PATIENT/FAMILY EDUCATION NEEDS:: Review of discharge instructions, medications, limitations, follow up plan Ask Me Three TRANSPORTATION:: via private vehicle with family PLAN:: David will be discharged home with no new services. He will follow up with his community providers and plan of care and transport with family.
--- NOTE | 2021-04-28 20:52 | DSE_ITS ---
Date of service: 04/28/21 Time of Service: 20:52 DS: Diagnosis Discharge Diagnosis (1) Prostatitis: Status: Acute (2) Prostate enlargement: Status: Chronic (3) Acute pyelonephritis: Status: Acute (4) Chronic atrial fibrillation: Status: Chronic Discharge Plan Disposition Patient Disposition: HOME Condition: Improving Discharge Details Reason For Visit: Bilateral Pyelonephritis Admit Date/Time: 04/26/21 19:20 Admit Provider: Matt Romero Attending Provider: Matt Romero Primary Care Provider: Matt Soler Hospital Course Hospital Course: 80-year-old male with a past medical history of nephrolithiasis, atrial fibrillation, not anticoagulated who presented to the ER w/ c/o of continued dysuria and flank pain. symptoms present for couple weeks but escalated w/ fever and chills and worsening dysuria. He had been on Cipro. Workup in the ER revealed bilateral perinephric stranding and a markedly enlarged prostate. However, no hydronephrosis nor calculi. He has severe diverticulosis but no di verticulitis. Blood and urine cultures were obtained and he was started Ceftriaxone 2 gm daily. Blood cultures came back no growth, and urine culture only grew <10,000 colonies of mixed gram positive dereck. Patient''s fever and chills resolved and he was tolerating a diet and iv fluids were stopped. His flank pain and dysuria improved. His prostate exam was abnormal for boggy enlarged very tender prostate. He was discharged home on Levaquin 750 mg daily x 14 days along w/ Flomax 0.4 mg daily. Home Meds and New Rx's Prescriptions: New tamsulosin 0.4 mg capsule 0.4 mg PO QHS Qty: 30 RF: 1 levofloxacin 750 mg tablet 750 mg PO DAILY 10 Days Qty: 10 RF: 0 Continued VITAMIN B-12 1,000 MCG/ML VIAL 1 ml IM QMO. 90 Days RF: 3 multivitamin Tablet 1 tab PO QAM RF: 0 diltiazem HCl 120 mg Capsule,Extended Release 12 Hr 120 mg PO BID RF: 0 phenazopyridine [Pyridium] 100 mg Tablet 200 mg PO TID PRNRF: 0 aspirin 81 mg Tablet 81 mg PO QPM RF: 0 metoprolol succinate 50 mg Tablet Extended Release 24 Hr 50 mg PO DAILY RF: 0 primidone 250 mg Tablet 250 mg PO BID RF: 0 metoprolol succinate 25 mg Tablet Extended Release 24 Hr 25 mg PO DAILY RF: 0 lisinopril 40 mg Tablet 40 mg PO DAILY RF: 0 Discontinued ciprofloxacin HCl 500 mg Tablet 500 mg PO BID RF: 0 Discharge Instructions Instructions: Prostatitis (DC), Kidney Infection (DC) Stand Alone Forms: Nursing Discharge Form Referrals: Matt Soler [Primary Care Provider] - (call the office on Thursday for follow up in the next week) Bryce Jackson MD [ CONSULTING PHYSICIAN] - (call the office on Thursday for follow up in the next week) Activity:: Activity as Tolerated Equipment/Supplies:: No Equipment Needed Diet:: Normal Diet Discharge Orders Discharge Orders: Discharge Order (Routine); Ordered 04/28/21 Ordered By: Paulie Sheehan Discharge Data Discharge Date/Time-TO BE ENTERED AT DEPARTURE: 04/28/21 17:01 DS: Summary Time Spent with Patient providing and/or coordinating discharge services: Greater than 30 minutes Status at Discharge Functional status at discharge: independent ambulation Overall status at discharge: patient is progressing back to baseline Mental Status: mental status grossly normal Speech and Movement: speech and movement normal Mood: congruent mood Affect: normal affect Exam Narrative Exam Narrative: Elderly white male who is sitting up in his chair watching TV. He is alert and oriented x 3 Lungs: clear Heart: irregularly, irregular @ controlled rate Abdomen: non-distended, soft, nontender Flanks: no flank tenderness to percussion Prostate is tender, very enlarged and boggy to palpation. normal rectal tone and stool is negative for occult blood. Psych Mental Status: mental status grossly normal Speech and Movement: speech and movement normal Mood: congruent mood Affect: normal affect DS: Data Vitals/I&O Vitals and I&O: Vital Signs Temperature 36.1 C L 04/28/21 16:12 Temperature Source Tympanic 04/28/21 16:12 Pulse 71 04/28/21 16:12 Pulse Rhythm Irregular 04/28/21 16:00 Pulse 85 04/26/21 19:02 Respiratory Rate 16 04/28/21 16:12 Respiratory Effort Non-Labored 04/28/21 16:00 Respiratory Depth Normal 04/28/21 16:00 Respiratory Pattern Normal 04/28/21 16:00 Blood Pressure 154/92 H 04/28/21 16:12 Blood Pressure Mean 84 04/26/21 19:01 Blood Pressure Position Sitting 04/26/21 15:02 Pulse Oximetry 98 04/28/21 16:12 Oxygen Delivery Method Room Air 04/28/21 16:12 Oxygen Flow Rate 0 04/28/21 16:12 Pain Level 0 04/28/21 16:00 Comment 04/28/21 16:00 Intake & Output 04/27/21 04/28/21 04/28/21 23:59 11:59 23:59 Intake Total 1387.5 / 4060.0 1369.167 / 2259.167 890 / 2259.167 Output Total 1950 / 3675 3725 / 4325 600 / 4325 Balance -562.5 / 385.0 -2355.833 / -2065.833 290 / -2065.833 Weight 88 kg Intake: IV 597.5 / 2380.0 379.167 / 479.167 100 / 479.167 Oral 790 / 1680 990 / 1780 790 / 1780 Output: Urine 1950 / 3675 3725 / 4325 600 / 4325 Other: Urine Color Yellow [place] Urine Appearance Clear Clear Clear Urine Odor Normal Normal Normal Comment Void x1 in the urinal. Void x1 in the toilet. Void x1 in the toilet. Voiding Methods Toilet Toilet Toilet Data Completed and Pending Labs on day of discharge: Labs from last 24 hours 04/28/21 04/28/21 04/28/21 06:30 06:30 06:30 WBC 6.22 D RBC 4.30 L Hgb 13.2 L Hct 39.3 L MCV 91.4 MCH 30.7 MCHC 33.6 RDW 12.8 Plt Count 119 L MPV 10.7 Immature Gran % 0.3 Neutrophils % 70.9 Lymphocytes % 18.5 Monocytes % 6.8 Eosinophils % 2.9 Basophils % 0.6 Nucleated RBC % 0 Absolute Neutrophils 4.41 Absolute Lymphocytes 1.15 L Absolute Monocytes 0.42 Absolute Eosinophils 0.18 Absolute Basophils 0.04 Sodium 141 Potassium 4.2 Chloride 106 Carbon Dioxide 27.6 Anion Gap 7.4 BUN 13 Creatinine 0.9 Estimated GFR/1.73 m2 >= 60.00 Glucose 94 Calcium 8.6 C-Reactive Protein 7.52 H Procalcitonin < 0.1 Preliminary micro results at discharge 04/26/21 16:05 Blood Culture - Preliminary Blood NO GROWTH 48 HOURS 04/26/21 15:39 Blood Culture - Preliminary Blood NO GROWTH 48 HOURS PFSH Medical History Atrial fibrillation Renal stones Social History Smoking/Tobacco Use Status: Former Tobacco Use Smoking risk assessment performed?: Yes Alcohol Intake: current Alcohol Intake frequency: 0-2 drinks per day Drug use: Never Substance use type: does not use Do you feel safe at home: Yes Do you feel safe in your relationship?: Yes
== END 2021-04-28 17:01 | disposition home or self-care (01) | DRG 728 ==
LOC: ER 17:50 → MS 19:21
PROVIDERS: Internal Medicine; Admitting Provider Family Medicine; Emergency Provider Student in an Organized Health Care Education/Training Program; PCP Family Medicine; Visit Provider Family Medicine
DX: N41.0 Acute prostatitis (principal); N10 Acute pyelonephritis; I48.20 Chronic atrial fibrillation, unspecified; N40.0 Benign prostatic hyperplasia without lower urinary tract symptoms; Z87.442 Personal history of urinary calculi; Z87.891 Personal history of nicotine dependence
CPT/HCPCS: 36415; 80048; 80053; 84145; 87040; 87635; 74176; 81003; 81015; 83605; 85025; 86140; 87086; 99223; 99232; 99239; J1644; J3490

== ENCOUNTER 2021-05-09 10:56 | Emergency (ER) | payer MEDICARE, SELFPAY ==
--- NOTE | 2021-05-09 11:15 | DI.RAD_ITS ---
Exam(s) XR LUMBAR SPINE COMPLETE EXAM: XR LUMBAR SPINE COMPLETE CLINICAL HISTORY: back pain s/p fall. TECHNIQUE: 2D digital imaging was performed of lumbar spine. Six views were obtained. AP, lateral, right oblique, left oblique and L5-S1 spot images were obtained. COMPARISON: No exams were available for comparison FINDINGS: BONES: No fracture or destructive lesion. Vertebral bodies are unremarkable. Facet hypertrophic guajardo es are seen from L3-4 through L5-S1. The bones are osteopenic. DISKS: Disc space narrowing is seen at T12-L1 through L3-L4. ALIGNMENT: There is a left convex scoliosis. No spondylolysis or spondylolisthesis. SOFT TISSUE: Atherosclerosis. IMPRESSION: No acute fractures or subluxations in the lumbar spine. DATA REPOSITORY: RADIATION DOSE DELIVERED:
--- NOTE | 2021-05-09 11:15 | DI.RAD_ITS ---
Exam(s) XR HIP LT COMPLETE AP PELVIS EXAM: XR HIP LT COMPLETE AP PELVIS CLINICAL HISTORY: pain s/p fall. TECHNIQUE: 2D digital imaging was performed of the left hip.Two views were obtained. AP pelvis and lateral left hip views were obtained. COMPARISON: No exams were available for comparison FINDINGS: BONES: No acute fracture is present. No bony destructive lesion is seen. JOINTS: No dislocation present. Mild degenerative changes are seen in the hips bilaterally. SOFT TISSUE: Normal. IMPRESSION: No acute fracture or dislocation. DATA REPOSITORY: RADIATION DOSE DELIVERED:
[2021-05-09 11:17] VITALS: BP 140/94; PULSE 79; RESP 16; TEMP 36.8; O2SAT 98
--- NOTE | 2021-05-09 11:24 | ED.GENADUL_ITS ---
Discharge Plan Disposition Patient Disposition: HOME Condition: Stable Discharge Details Clinical Impression: Back contusion, Contusion of hip Primary Care Provider: Matt Soler ED Provider: Hipolito Ford Home Meds and New Rx's Prescriptions: Continued VITAMIN B-12 1,000 MCG/ML VIAL 1 ml IM QMO. 90 Days RF: 3 multivitamin Tablet 1 tab PO QAM RF: 0 diltiazem HCl 120 mg Capsule,Extended Release 12 Hr 120 mg PO BID RF: 0 phenazopyridine [Pyridium] 100 mg Tablet 200 mg PO TID PRNRF: 0 aspirin 81 mg Tablet 81 mg PO QPM RF: 0 metoprolol succinate 50 mg Tablet Extended Release 24 Hr 50 mg PO DAILY RF: 0 primidone 250 mg Tablet 250 mg PO BID RF: 0 metoprolol succinate 25 mg Tablet Extended Release 24 Hr 25 mg PO DAILY RF: 0 lisinopril 40 mg Tablet 40 mg PO DAILY RF: 0 tamsulosin 0.4 mg capsule 0.4 mg PO QHS Qty: 30 RF: 1 Discharge Instructions Instructions: Contusion in Adults (ED) Additional Instructions: your xrays did not show any broken bones if pain continues next week follow up with your primary care provider if you have severe worsening pain, difficulty breathing, or abdomen pain return to the emergency department Medical Decision Making 80 yo male who was discharged last week after being admitted for prostatitis and pyelo, states the next day was carrying material and tripped landing on firewood. Denies hitting head or loc. He has had a week of left lower back pain since so came here. Denies weakness, difficulty urinating, bloody urine or urinary symptoms. He does have contusions on the left lower back. No saddle anesthesia, normal reflexes in the legs and sensation. Has pain in the left lower lumbar area and midline. Suspect contusion, but will xray to evaluate for fracture. Has no abdomen tenderness so doubt abdominal pathology such as appendicitis or pancreatitis and had normal aorta on CT a week ago so doubt AAA. pt feels better with lidocaine patch as well as ibuprofen and imaging unremarkable. He is stable and ambulating without difficultires. suspect contusion from the fall, advised to f/u with pcp and return precautions given Differential Diagnosis Differential Diagnosis: contusion, fracture, sprain Medical Records Medical records reviewed: Yes I reviewed the patient's medical records. Imaging Data Radiologic Study: Attestation: I personally reviewed and interpreted this imaging study as follows: Imaging: X-Ray Radiologist's impression: IMPRESSION: No acute fracture or dislocation on hip xray Radiologic Study #2: Attestation: I personally reviewed and interpreted this imaging study as follows: Imaging: X-Ray Radiologist's impression: IMPRESSION: No acute fractures or subluxations in the lumbar spine. HPI General Mode of arrival: ambulatory . Date/Time Provider Initiated Documentation: 05/09/21 11:15 . Limitations to Documentation: no limitations . Information obtained by: patient . History of Present Illness 80 year old M presents to the emergency department with the chief complaint of lower back pain, described as moderate, Quality is described as aching, and is localized to the back. Patient reports no radiation. Patient started experiencing this week(s) (1) and it has been constant. No relieving factors improve symptom(s), Movement worsens symptoms . Patient notes no other symptoms.. Patient did receive the following treatments prior to arrival, none Related Data Home Medications Medication Instructions Recorded Confirmed Vitamin B-12 1 ml IM QMO. 90 Days 09/27/08 05/09/21 aspirin 81 mg PO QPM 04/26/21 05/09/21 diltiazem HCl 120 mg PO BID 04/26/21 05/09/21 lisinopril 40 mg PO DAILY 04/26/21 05/09/21 metoprolol succinate 25 mg PO DAILY 04/26/21 05/09/21 metoprolol succinate 50 mg PO DAILY 04/26/21 05/09/21 multivitamin 1 tab PO QAM 04/26/21 05/09/21 phenazopyridine [Pyridium] 200 mg PO TID PRN 04/26/21 05/09/21 primidone 250 mg PO BID 04/26/21 05/09/21 tamsulosin 0.4 mg PO QHS #30 cap 04/28/21 05/09/21 Previous Rx's Medication Instructions Recorded tamsulosin 0.4 mg PO QHS #30 cap 04/28/21 Allergies Allergy/AdvReac Type Severity Reaction Status Date / Time No Known Allergies Allergy Unverified 05/09/21 11:16 General Stated Complaint: Nk/Back Pain VITA: 3 Review of Systems All systems reviewed & are unremarkable except as noted in HPI and below Constitutional Constitutional: Denies chills, Denies fever(s) and Denies weakness Cardiovascular Cardiovascular: Denies chest pain and Denies dyspnea Respiratory Respiratory: Denies cough and Denies dyspnea Gastrointestinal Gastrointestinal: Denies abdominal pain, Denies nausea and Denies vomiting Musculoskeletal Musculoskeletal: Denies joint swelling Integumentary/Breasts Skin/Breast: Denies rash Neurologic Neurologic: Denies weakness [facility] Medical History Atrial fibrillation Renal stones Social History Smoking/Tobacco Use Status: Former Tobacco Use Smoking risk assessment performed?: Yes Alcohol Intake: current Alcohol Intake frequency: 0-2 drinks per day Drug use: Never Substance use type: does not use Do you feel safe at home: Yes Do you feel safe in your relationship?: Yes Exam Const General: no acute distress Orientation: alert HENMT Head: normal to inspection Ears: external ears normal General nose exam: external nose normal Mouth: moist mucous membranes Eyes General: appearance normal, both eyes and all related structures Neck Neck: normal visual inspection Resp Effort & Inspection: normal respiratory effort and able to speak in complete sentences Cardio Rate: regular rate Back/Spine/Pelvis Back: no CVA tenderness Skin General skin exam: no rashes or lesions noted Neuro General: patient alert and patient oriented x3 Extrem General: normal to inspection Psych Mental Status: mental status grossly normal Course Vital Signs Vital signs: Vital Signs Temperature 36.8 C 05/09/21 11:17 Pulse 79 05/09/21 11:17 Respiratory Rate 16 05/09/21 11:17 Blood Pressure 140/94 H 05/09/21 11:17 Pulse Oximetry 98 05/09/21 11:17 Temperature 36.8 C 05/09/21 11:17 Temperature Source Skin 05/09/21 11:17 Pulse 79 05/09/21 11:17 Respiratory Rate 16 05/09/21 11:17 Respiratory Effort Non-Labored 05/09/21 11:20 Blood Pressure 140/94 H 05/09/21 11:17 Blood Pressure Position Sitting 05/09/21 11:17 Pulse Oximetry 98 05/09/21 11:17 Oxygen Delivery Method Room Air 05/09/21 11:17 Oxygen Flow Rate 0 05/09/21 11:17 Pain Level 3 05/09/21 11:17
[2021-05-09] MEDS: Ibuprofen 600 MG TAB PO (11:56)
[2021-05-09] MEDS: Lidocaine 5% Patch 1 PATCH TP (11:57)
--- NOTE | 2021-05-09 12:34 | NUR.NOTE ---
Patient sitting on side of bed, reports that is his most comfortable position. Denies needs. Call light in reach.ursing Note:
[2021-05-09 13:34] VITALS: BP 154/83; PULSE 64; RESP 16; TEMP 36.4; O2SAT 99
== END 2021-05-09 13:35 | disposition home or self-care (01) ==
PROVIDERS: Emergency Provider Emergency Medicine; PCP Family Medicine
DX: S30.0XXA Contusion of lower back and pelvis, initial encounter (principal); S70.02XA Contusion of left hip, initial encounter; W01.198A Fall on same level from slipping, tripping and stumbling with subsequent striking against other object, initial encounter
CPT/HCPCS: 99284; 72110; 73502; 81003

== ENCOUNTER 2021-06-03 17:44 | Emergency (ER) | payer MEDICARE, SELFPAY ==
[2021-06-03 17:45] VITALS: BP 156/95; PULSE 80; RESP 18; TEMP 36.5; O2SAT 98
[2021-06-03 18:04] LABS: Bilirubin Negative (Negative); Blood Negative (Negative); Clarity Clear (Clear); Glucose Negative (Negative); Ketones Negative (Negative); Leukocyte Esterase Negative (Negative); Nitrite Negative (Negative); Specific Gravity 1.015 (1.005-1.025); Urobilinogen 0.2 EU/dL (Up TO 0.2); pH 5.5 (5-8)
--- NOTE | 2021-06-03 18:53 | W.ED.GENAD ---
Discharge Plan Disposition Patient Disposition: HOME Condition: Stable Discharge Details Clinical Impression: Multiple transverse process fractures Primary Care Provider: Matt Soler ED Provider: Hallie Watson Home Meds and New Rx's Prescriptions: Continued VITAMIN B-12 1,000 MCG/ML VIAL 1 ml IM QMO. 90 Days RF: 3 multivitamin Tablet 1 tab PO QAM RF: 0 diltiazem HCl 120 mg Capsule,Extended Release 12 Hr 120 mg PO BID RF: 0 phenazopyridine [Pyridium] 100 mg Tablet 200 mg PO TID PRNRF: 0 aspirin 81 mg Tablet 81 mg PO QPM RF: 0 metoprolol succinate 50 mg Tablet Extended Release 24 Hr 50 mg PO DAILY RF: 0 primidone 250 mg Tablet 250 mg PO BID RF: 0 metoprolol succinate 25 mg Tablet Extended Release 24 Hr 75 mg PO DAILY RF: 0 lisinopril 40 mg Tablet 40 mg PO DAILY RF: 0 tamsulosin 0.4 mg capsule 0.4 mg PO QHS Qty: 30 RF: 1 Discharge Instructions Instructions: Transverse Process Fracture (ED) Additional Instructions: Your imaging is concerning for 2 spinal fractures that appear to be healing on the left side of your lower back. You also have significant arthritic changes. The pain on the right side is likely associated muscle spasm from these fractures. Please continue to encourage hydration. Please continue with Tylenol and ibuprofen as needed for discomfort. Please continue with topical options such as lidocaine patches. You may also continue with your muscle relaxers as previously prescribed. Gentle stretching. I feel the physical therapy would be a good option to help with your right-sided back pain, referral is attached, please call tomorrow to schedule follow-up appointment. Please also follow-up with your primary care in the next 1 to 2 weeks for reevaluation. If you develop increased pain, fever/chills, weakness, difficulty with urinating or bowel movements, sensation changes or other new/worsening symptoms seek care urgently once again. Stand Alone Forms: Physical Therapy Referral Referrals: Matt Soler [Primary Care Provider] - Discharge Data Discharge Date/Time-TO BE ENTERED AT DEPARTURE: 06/03/21 22:25 Medical Decision Making Patient is a pleasant 80-year-old gentleman presenting today with chief complaint of right-sided flank pain. He states the flank pain began 1 month ago and progressively been increasing in his when additionally diagnosed with pyelonephritis. Subsequently, he was back with discomfort in similar area after having a fall at home. He states that he was initially treated with muscle relaxers which she feels works well for a bit but pain is progressive and increasing. He states that he had an outpatient ultrasound to look for any recurrence of his nephrolithiasis which was found to be negative last week. Denies any fevers or chills. Denies any change in urinary habits. Endorsing change in bowel habits, states that he began having diarrhea around midnight last night. Pain does not radiate. Pain is worse with certain movements. On exam, patient appears nontoxic. He does appear very uncomfortable. Lung sounds are clear. He is irregularly irregular, reports a history of atrial fibrillation. Abdomen is benign. He is superficial pulses. Does have an area of swelling along the right lower aspect spine. This is the area of tenderness. No associated rash, erythema, warmth. No midline tenderness. No discomfort with percussion. Region. Patient discussed differential diagnosis. Again, as he was initially treated with muscle relaxers and pain is worse with movement, this is likely musculoskeletal source given the patient's age I do feel that advanced imaging would be warranted. Patient is very concerned that there is something more serious underlying and would like to move forward with CT. He did have a change in his bowel habit associated with the discomfort last night, I do feel that CT with contrast of the abdomen would be appropriate, particularly as renal source has been evaluated for with renal CT last month as well as a recent renal ultrasound. Will give low-dose of Valium, Tylenol and Lidoderm patch. He has been using NSAIDs without relief and has taken NSAIDs today. Labs reviewed, no significant abnormality. No evidence of recurrent pyelonephritis FINDINGS: Vertebrae: Diffuse osteopenia is noted. 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 There is a nondisplaced fracture of the left 3rd and 4th lumbar vertebral body transverse processes, which may be subacute in timeline. Discs/Spinal canal/Neural foramina: Multilevel degenerative disc disease and facet arthropathy noted with severe bilateral neural foraminal narrowing most prominent at L4-L5. Soft tissues: Unremarkable. IMPRESSION: 1. No acute compression fracture. 2. Nondisplaced fractures of the left 3rd and 4th lumbar vertebral body transverse processes, which may be subacute. Correlate with clinical history and patient presentation. 3. Multilevel degenerative changes throughout the lumbar spine with severe neural foraminal narrowing FINDINGS: Liver: Small simple hepatic cysts are noted measuring up to 3.4 cm in the left hepatic lobe. Gallbladder and bile ducts: The patient is status post cholecystectomy. Pancreas: Normal. No ductal dilation. Spleen: Normal. No splenomegaly. Adrenal glands: Normal. No mass. Kidneys and ureters: There is a 1.3 cm simple cyst in the right kidney. No hydronephrosis. Stomach and bowel: No bowel obstruction. There is sigmoid diverticulosis without acute diverticulitis. Appendix: No evidence of appendicitis. Intraperitoneal space: Unremarkable. No free air. No significant fluid collection. Vasculature: No abdominal aortic aneurysm. Lymph nodes: No enlarged lymph nodes. Urinary bladder: Unremarkable as visualized. Reproductive: Unremarkable as visualized. Bones/joints: Multilevel degenerative changes noted. Left transverse process fractures noted, better evaluated on the CT of the lumbar spine. Soft tissues: Unremarkable. IMPRESSION: 1. No acute bowel obstruction or evidence of acute bowel inflammation. 2. No hydronephrosis. Discussed these findings with the patient. Fracture is likely associated with his fall a month ago. The fractures are on tara contralateral side from the pain, likely associated with spasm from the fracture. He and I discussed treatment options. He feels that he can manage his pain at home with the previously prescribed muscle relaxers. States that his concern was that there was something severe causing his pain, is relieved to know where the source is. Strict return precautions. Advised close f/u with PCP. All of his questions and concerns were addressed, he is in agreement with this plan. [facility] General Mode of arrival: ambulatory. Date/Time Provider Initiated Documentation: 06/03/21 18:53. Limitations to Documentation: no limitations. Information obtained by: patient, RN notes reviewed and old records reviewed. History of Present Illness 80 year old M presents to the emergency department with the chief complaint of right sided back pain, described as severe, with intensity rated at 10. Quality is described as aching, and is localized to the back. Patient reports no radiation. Patient started experiencing this month(s) (1) and it has been constant. Immobilization improves symptom(s), Movement worsens symptoms . Patient notes no other symptoms.; denies chest pain, cough, fever/chills, headaches, nausea/vomiting, rash, shortness of breath and weakness. Patient did receive the following treatments prior to arrival, none Related Data Home Medications Medication Instructions Recorded Confirmed Vitamin B-12 1 ml IM QMO. 90 Days 09/27/08 06/03/21 aspirin 81 mg PO QPM 04/26/21 06/03/21 diltiazem HCl 120 mg PO BID 04/26/21 06/03/21 lisinopril 40 mg PO DAILY 04/26/21 06/03/21 metoprolol succinate 50 mg PO DAILY 04/26/21 06/03/21 metoprolol succinate 75 mg PO DAILY 04/26/21 06/03/21 multivitamin 1 tab PO QAM 04/26/21 06/03/21 phenazopyridine [Pyridium] 200 mg PO TID PRN 04/26/21 06/03/21 primidone 250 mg PO BID 04/26/21 06/03/21 tamsulosin 0.4 mg PO QHS #30 cap 04/28/21 06/03/21 Previous Rx's Medication Instructions Recorded tamsulosin 0.4 mg PO QHS #30 cap 04/28/21 Allergies Allergy/AdvReac Type Severity Reaction Status Date / Time No Known Allergies Allergy Unverified 06/03/21 18:08 General Stated Complaint: Nk/Back Pain VITA: 3 Review of Systems Constitutional Constitutional: Reports as per HPI, Denies chills, Denies fever(s), Denies frequent falls and Denies headache(s) ENT Ears, Nose, Mouth, and Throat: Denies headache(s) and Denies neck pain Cardiovascular Cardiovascular: Denies chest pain, Denies dyspnea and Denies dyspnea on exertion Respiratory Respiratory: Denies cough, Denies dyspnea and Denies dyspnea on exertion Gastrointestinal Gastrointestinal: Denies abdominal pain, Denies change in bowel habits and Denies fecal incontinence Genitourinary Genitourinary: Reports as per HPI, Denies urinary hesitancy and Denies urinary incontinence Musculoskeletal Musculoskeletal: Reports as per HPI, Reports back pain, Reports muscle cramps, Denies muscle weakness, Denies neck pain, Denies numbness, Denies radiating pain into limb, Reports stiffness and Denies tingling Integumentary/Breasts Skin/Breast: Reports as per HPI and Denies rash Neurologic Neurologic: Reports as per HPI, Denies frequent falls, Denies headache(s), Denies localized weakness, Denies numbness, Denies radicular pain, Denies sensory deficit, Denies tingling and Denies paresthesias REPLACED BY [facility] Medical History Atrial fibrillation Renal stones Social History Smoking/Tobacco Use Status: Former Tobacco Use Smoking risk assessment performed?: Yes Alcohol Intake: current Alcohol Intake frequency: 0-2 drinks per day Drug use: Never Substance use type: does not use Do you feel safe at home: Yes Do you feel safe in your relationship?: Yes Exam Const General: cooperative, healthy appearing, uncomfortable, no acute distress, well developed and well groomed Nutritional Appearance: average body habitus and well nourished Orientation: alert and awake Neck Neck: normal visual inspection and full ROM Resp Effort & Inspection: normal respiratory effort and able to speak in complete sentences Auscultation: clear to auscultation bilaterally, no rales, no rhonchi and no wheezes Cardio Rate: regular rate Rhythm: abnormal rhythm irregularly irregular Heart Sounds: S1 normal and S2 normal GI Inspection: normal to inspection Palpation: soft, no masses, no pulsatile masses and nontender Percussion: normal to percussion Auscultation: normal bowel sounds Back/Spine/Pelvis Back: no CVA tenderness Cervical Spine: normal cervical lordosis, cervical ROM normal and No cervical spinal tenderness Thoracic/Lumbar Spine: thoracic and lumbar spine normal to inspection, No thoraco-lumbar ROM normal (limited rotation to the right and with extension), straight leg raise negative bilaterally, paraspinal tenderness, thoraco-lumbar spasm, No thoracic spinal tenderness and No lumbar spinal tenderness Pelvis: no pain with anterior-posterior compression and no pain with lateral compression Sacroiliac joints: bilaterally nontender Skin General skin exam: no rashes or lesions noted Neuro General: patient alert and patient awake Cognition: normal cognition Speech: speech normal Gait: antalgic Motor: muscle tone normal throughout, strength 5/5 throughout, no movement abnormalities noted and no fasciculations Sensory Exam: no sensory deficits noted (no saddle paresthesias) Extrem General: normal to inspection, full ROM, capillary refill normal, no pedal edema, no calf tenderness and other (2+ distal pulses) Psych Appearance: grossly normal and well kempt Mental Status: mental status grossly normal Speech and Movement: speech and movement normal Course Vital Signs Vital signs: Vital Signs Temperature 36.5 C 06/03/21 17:45 Pulse 80 06/03/21 17:45 Respiratory Rate 18 06/03/21 17:45 Blood Pressure 156/95 H 06/03/21 17:45 Pulse Oximetry 98 06/03/21 17:45 Temperature 36.5 C 06/03/21 17:45 Temperature Source Temporal Artery Scan 06/03/21 17:45 Pulse 80 06/03/21 17:45 Respiratory Rate 18 06/03/21 17:45 Respiratory Effort Non-Labored 06/03/21 18:07 Blood Pressure 156/95 H 06/03/21 17:45 Pulse Oximetry 98 06/03/21 17:45 Oxygen Delivery Method Room Air 06/03/21 17:45 Oxygen Flow Rate 0 06/03/21 17:45 Pain Level 10 06/03/21 18:12 Comment 06/03/21 17:45 Lab/Test Results Lab/Test Results: Laboratory Tests Range/Units 06/03/21 17:55 Urine Color (Yellow) Yellow Urine Clarity (Clear) Clear Urine pH (5-8) 5.5 Ur Specific [place] (1.005-1.025) 1.015 Urine Protein (Negative) mg/dL Negative Urine Ketones (Negative) mg/dL Negative Urine Blood (Negative) Negative Urine Nitrite (Negative) Negative Urine Bilirubin (Negative) Negative Urine Urobilinogen (Up TO 0.2) EU/dL 0.2 Ur Leukocyte Esterase (Negative) Negative Urine Glucose (Negative) mg/dL Negative
--- NOTE | 2021-06-03 19:15 | DI.CT_ITS ---
Exam(s) CT ABDOMEN PELVIS W EXAM: CT ABDOMEN PELVIS W CLINICAL HISTORY: right sided flank pain. TECHNIQUE: Imaging Protocol: Axial computed tomography images with coronal and sagittal reformatted images were created and reviewed CONTRAST MATERIAL: Intravenous: Omnipaque 100cc Oral: None COMPARISON: CT CT RENAL COLIC WO from 04/26/2021 FINDINGS: VISUALIZED LUNG BASES: No nodules nor pleural effusions evident. ABDOMEN: There is no ascites. LIVER: 2 cysts again noted in the right hepatic lobe are unchanged in size. The larger of these 2 cy sts is adjacent to the inter lobar fissure and measures 3.3 by 2.7 by 4.2 cm. GALLBLADDER/BILIARY: Gallbladder is again noted be surgically absent. The diameter is upper normal. PANCREAS: No evidence of pancreatic mass nor dilatation of the pancreatic duct. SPLEEN: Spleen is not enlarged. No obvious intrasplenic lesions. Splenic and portal veins are paten t. ADRENALS: There are no significant adrenal masses. KIDNEYS:There is a cyst in the lateral right kidney noted which measures 1.3 by 1.0 cm, unchanged. M ild perinephric streaking around the left kidney is unchanged. No calculi. No solid renal masses. No calculi nor hydronephrosis.. ABDOMINAL AORTA: Calcified but not enlarged. LYMPH NODES:There is no retroperitoneal nor paraaortic adenopathy. ABDOMINAL WALL: No evidence of significant anterior abdominal wall nor inguinal hernia. GI: Extensive sigmoid diverticulosis. No obvious acute diverticulitis. There are few slightly promi nent small bowel loops in the central and lower abdomen, ranging up to 2.4 cm diameter. PELVIS: GI: No evidence of appendicitis.As above LYMPH NODES: There is no intrapelvic nor inguinal adenopathy. REPRODUCTIVE: Mild prostatic enlargement URINARY BLADDER: No calculi nor obvious masses evident OSSEOUS: No significant osseous lesions. Chronic degenerative disc disease multilevel. IMPRESSION: 1. Extensive sigmoid diverticulosis but no obvious acute diverticulitis 2. Small benign-appearing cyst in the lateral aspect of the right kidney measuring 13 x 10 millimeter s. No solid renal masses. No calculi nor hydronephrosis. No hydroureter. 3. Gallbladder surgically absent. No significant dilatation of biliary tree. 4. Stable appearance of right hepatic lobe cysts. RADIATION DOSE DELIVERED: Total DLP DATA REPOSITORY: All CT scans at this facility are submitted to the National Radiology Data Registry (NRDR) Dose Index Registry (DIR) with the [employer] ([employer]). RADIATION OPTIMIZATION: All CT scans at this facility use at least one of these dose optimization te chniques: automated exposure control; mA and/or kV adjustment per patient size (includes targeted exa ms where dose is matched to clinical indication); or iterative reconstruction.
--- NOTE | 2021-06-03 19:18 | DI.CT_ITS ---
Exam(s) CT LUMBAR SPINE RECONS EXAM: CT LUMBAR SPINE RECONS CLINICAL HISTORY: recons. TECHNIQUE: Imaging Protocol: Axial computed tomography images with coronal and sagittal reformatted images were created and reviewed COMPARISON: CT CT RENAL COLIC WO from 04/26/[address] ABDOMEN PELVIS W from 06/03/2021 FINDINGS: Bones: Scoliosis convex left. No compression fractures nor listhesis.. There is nondisplaced fractu re of the left transverse process of L3. Also nondisplaced fracture left transverse process of L4. These findings are probably subacute. No other fractures identified. Multilevel degenerative changes and facet arthropathy. Osseous central canal dimensions are lower no rmal with an element of spinal canal stenosis at L4-5 level. PARASPINAL SOFT TISSUES: Visualized paraspinal tissues appear unremarkable. IMPRESSION: 1. Nondisplaced fractures of the left transverse process is of L3 and L4 vertebral bodies, possibly s ubacute. Correlation with clinical history and physical exam recommended. 2. No acute compression fractures in the lumbar vertebrae. 3. Multilevel degenerative changes and degenerative facet arthropathy. RADIATION DOSE DELIVERED: Total DLP DATA REPOSITORY: All CT scans at this facility are submitted to the National Radiology Data Registry (NRDR) Dose Index Registry (DIR) with the [employer] ([employer]). RADIATION OPTIMIZATION: All CT scans at this facility use at least one of these dose optimization te chniques: automated exposure control; mA and/or kV adjustment per patient size (includes targeted exa ms where dose is matched to clinical indication); or iterative reconstruction.
[2021-06-03] MEDS: Acetaminophen 325 MG TAB 650 MG PO (19:28)
[2021-06-03] MEDS: diazePAM 2 MG TAB PO (19:28)
[2021-06-03] MEDS: Lidocaine 5% Patch 1 PATCH TP (19:39)
[2021-06-03 20:15] LABS: Abs Immature Grans 0.01 10^3/uL (0.0-0.06); Absolute Basophil Count 0.06 10^3/uL (0.0-0.2); Absolute Eosinophil Count 0.17 10^3/uL (0.0-0.7); Absolute Lymphocyte Count 1.67 10^3/uL (1.2-3.4); Absolute Monocyte Count 0.52 10^3/uL (0.1-0.8); Absolute Neutrophil Count 3.31 10^3/uL (1.2-6.7); HCT 42.3 % (40.0-50.0); HGB 14.3 g/dL (13.5-17.5); Immature Grans % 0.2; Lymphocytes % 29.1; MCH 30.6 pg (27.0-33.0); MCHC 33.8 % (32.0-36.0); MCV 90.4 fL (80-95); MPV 9.8 fL (8.0-11.0); Monocytes % 9.1; Neutrophils % 57.6; Nucleated RBC 0 %; Platelet Count 129 10^3/uL (130-400); RBC 4.68 10^6/uL (4.36-5.78); RDW 12.6 % (11.8-14.1); RDW-SD 42.1 fL; WBC 5.74 10^3/uL (4.4-10.8)
[2021-06-03 20:26] LABS: ALT 29 U/L (16-63); AST 23 U/L (15-37); Albumin 3.9 g/dL (3.4-5.0); Alkaline Phosphatase 94 U/L (46-116); Anion Gap 6.6 mmol/L (3-11); BUN 14 mg/dL (7-18); Bilirubin, Total 0.3 mg/dL (0.2-1.0); CO2 30.4 mmol/L (21.0-32.0); CREATININE 0.9 mg/dL (0.70-1.30); Calcium 8.7 mg/dL (8.5-10.1); Chloride 104 mmol/L (98-107); Glucose 103 mg/dL (74-106); Sodium 141 mmol/L (136-145); Total Protein 7.3 g/dL (6.4-8.2)
[2021-06-03] MEDS: Normal Saline Flush 10 ML SYR IVP (20:47)
[2021-06-03] MEDS: Normal Saline - Diluent 50 ML VIAL IV (20:47)
[2021-06-03] MEDS: Omnipaque 350 MG/ML 100 ML BTL IJ (20:47)
--- NOTE | 2021-06-03 21:33 | DI.VRAD_ITS ---
PROCEDURE INFORMATION: Exam: CT Lumbar Spine Without Contrast Exam date and time: 06/03/2021 7:39 PM Age: 80 years old Clinical indication: Right sided flank pain TECHNIQUE: Imaging protocol: Computed tomography images of the lumbar spine without contrast. COMPARISON: CR XR LUMBAR SPINE COMPLETE 05/09/2021 12:21 PM FINDINGS: Vertebrae: Diffuse osteopenia is noted. 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 There is a nondisplaced fracture of the left 3rd and 4th lumbar vertebral body transverse processes, which may be subacute in timeline. Discs/Spinal canal/Neural foramina: Multilevel degenerative disc disease and facet arthropathy noted with severe bilateral neural foraminal narrowing most prominent at L4-L5. Soft tissues: Unremarkable. IMPRESSION: 1. No acute compression fracture. 2. Nondisplaced fractures of the left 3rd and 4th lumbar vertebral body transverse processes, which may be subacute. Correlate with clinical history and patient presentation. 3. Multilevel degenerative changes throughout the lumbar spine with severe neural foraminal narrowing. Dictated and Authenticated by: Guerline Elizabeth MD. Ordering:KATHLEEN Sterling MD
--- NOTE | 2021-06-03 21:47 | DI.VRAD_ITS ---
PROCEDURE INFORMATION: Exam: CT Abdomen And Pelvis With Contrast Exam date and time: 06/03/2021 7:20 PM Age: 80 years old Clinical indication: Abdominal pain; Right; Patient HX: R sided flank pain TECHNIQUE: Imaging protocol: Computed tomography of the abdomen and pelvis with contrast. COMPARISON: CT RENAL COLIC WO 04/26/2021 4:28 PM FINDINGS: Liver: Small simple hepatic cysts are noted measuring up to 3.4 cm in the left hepatic lobe. Gallbladder and bile ducts: The patient is status post cholecystectomy. Pancreas: Normal. No ductal dilation. Spleen: Normal. No splenomegaly. Adrenal glands: Normal. No mass. Kidneys and ureters: There is a 1.3 cm simple cyst in the right kidney. No hydronephrosis. Stomach and bowel: No bowel obstruction. There is sigmoid diverticulosis without acute diverticulitis. Appendix: No evidence of appendicitis. Intraperitoneal space: Unremarkable. No free air. No significant fluid collection. Vasculature: No abdominal aortic aneurysm. Lymph nodes: No enlarged lymph nodes. Urinary bladder: Unremarkable as visualized. Reproductive: Unremarkable as visualized. Bones/joints: Multilevel degenerative changes noted. Left transverse process fractures noted, better evaluated on the CT of the lumbar spine. Soft tissues: Unremarkable. IMPRESSION: 1. No acute bowel obstruction or evidence of acute bowel inflammation. 2. No hydronephrosis. Dictated and Authenticated by: Guerline Elizabeth MD. Ordering:KATHLEEN Sterling MD
[2021-06-03 22:07] VITALS: BP 131/81; PULSE 78; RESP 18; TEMP 36.6; O2SAT 99
== END 2021-06-03 22:25 | disposition home or self-care (01) ==
PROVIDERS: Emergency Provider Physician Assistant; PCP Family Medicine
DX: S32.038A Other fracture of third lumbar vertebra, initial encounter for closed fracture (principal); S32.048A Other fracture of fourth lumbar vertebra, initial encounter for closed fracture; W19.XXXA Unspecified fall, initial encounter
CPT/HCPCS: 36415; 80053; 99285; 74177; 81003; 85025; 99284; J3490

== ENCOUNTER 2021-07-15 13:23 | Emergency (ER) | payer MEDICARE, SELFPAY ==
[2021-07-15 13:28] VITALS: BP 147/70; PULSE 85; RESP 20; TEMP 36.5; O2SAT 98
--- NOTE | 2021-07-15 13:39 | ED.GENADUL_ITS ---
Discharge Plan Disposition Patient Disposition: HOME Condition: Stable Discharge Details Clinical Impression: Chest wall contusion, Trauma Primary Care Provider: aMtt Soler ED Provider: Susie Pinzon Home Meds and New Rx's Prescriptions: Continued VITAMIN B-12 1,000 MCG/ML VIAL 1 ml IM QMO. 90 Days RF: 3 multivitamin Tablet 1 tab PO QAM RF: 0 diltiazem HCl 120 mg Capsule,Extended Release 12 Hr 120 mg PO BID RF: 0 aspirin 81 mg Tablet 81 mg PO QPM RF: 0 metoprolol succinate 50 mg Tablet Extended Release 24 Hr 50 mg PO DAILY RF: 0 primidone 250 mg Tablet 250 mg PO BID RF: 0 metoprolol succinate 25 mg Tablet Extended Release 24 Hr 75 mg PO DAILY RF: 0 lisinopril 40 mg Tablet 40 mg PO DAILY RF: 0 tamsulosin 0.4 mg capsule 0.4 mg PO QHS Qty: 30 RF: 1 Discharge Instructions Instructions: Contusion in Adults (ED) Additional Instructions: Follow up with primary care provider in 3-5 days. Return to ED sooner if any worsening or concerns. Increase oral fluids. Please take Tylenol or Ibuprofen with food every 4-6 hours as needed for pain and swelling. Referrals: Matt Soler [Primary Care Provider] - Discharge Data Discharge Date/Time-TO BE ENTERED AT DEPARTURE: 07/15/21 18:10 Medical Decision Making <ANGELA Hebert - Last Filed: 07/16/21 23:32> Patient is a pleasant 81-year-old gentleman presented with chief complaint of chest and abdominal trauma. Patient reports a prior to arrival he was in a wag on being pulled by a horse when the horse began to run and the wagon crash. Patient states that he fell striking the lower aspect of his chest and upper abdomen. Denies any loss of consciousness. Did not strike his head. He denies any shortness of breath. He denies any weakness. States that he was able to get up and continue his wagon ride. He denies any neck pain, back pain. Denies any nausea or vomiting. No incontinence. No paresthesias. Patient is not anticoagulated. On exam, patient appears nontoxic. Small area of ecchymosis in the inferior aspect of the right rib. He has tenderness elicited with palpation with anterior as well as lateral pressure to the chest wall, more so on the right side. No crepitus. Clear lung sounds. No focal area of tenderness. No deformity noted. Mild discomfort elicited with palpation of the right upper quadrant. No midline cervical, thoracic or lumbar spine. No head trauma is evident. Pelvis is stable. No saddle paresthesias. Ambulated unassisted. Patient also reports that he has had cough for the past 2 weeks, congestion. No fevers or chills. Will treat with Covid precautions. Patient declines any analgesics at this time. Labs reviewed. No leukocytosis. Stable H&H. CMP without significant abnormality, troponin within normal limits. Lipase within normal limits. At the end of my shift, care transition to Susie Pinzon NP with imaging pending. <Susie Pinzon - Last Filed: 07/15/21 22:01> Care assumed from provider (ANGELA Merrill) Please see her initial HPI, PE, and documentation. Discussed patient details and case and pending workup and disposition. Patient is hemodynamically stable, and alert and oriented. At the time of signout we are awaiting the CT chest results. And a send out Covid test. Which I will order. V rad CT chest abdomen pelvis: FINDINGS: Liver: 3.6 cm stable cyst anterior left hepatic lobe and 1.5 cm cyst inferior right hepatic lobe. Gallbladder and bile ducts: Cholecystectomy with associated mild intrahepatic and common bile duct dilatation. Pancreas: Normal. No ductal dilation. Spleen: Normal. No splenomegaly. Adrenal glands: Normal. No mass. Kidneys and ureters: 1.4 cm benign cyst right kidney. Stomach and bowel: Bulky diverticulosis without evidence of diverticulitis. Appendix: No evidence of appendicitis. Intraperitoneal space: Unremarkable. No free air. No significant fluid collection. Vasculature: Vascular calcifications. Lymph nodes: Unremarkable. No enlarged lymph nodes. Urinary bladder: Unremarkable as visualized. Reproductive: Prostate enlargement. Bones/joints: Degenerative arthritis in the spine and pelvis. Healed or healing fractures of the left transverse processes of L4 and L5. Soft tissues: Unremarkable. IMPRESSION: 1. No acute findings 2. Benign hepatic and renal cysts 3. 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 Dictated and Authenticated by: Nani Houser MD Discussed CT results with patient who verbalized understanding. He is sitting up in bed alert and oriented hemodynamically stable speaking in full sentences. I did offer pain management with patient declined at this time. Did discuss taking Tylenol or ibuprofen as needed for pain and swelling. I did discuss continued quarantine measures until Covid test returns. I discussed strict return instructions to return for any worsening pain, shortness of breath, blood in stools, worsening abdominal pain, dizziness lightheadedness, fever chills nausea vomiting diarrhea which patient verbalized understanding is in agreement with. Patient discharged in hemodynamically stable condition. This text was generated using [employer] dictation system, please disregard any oddities of phrase or misspellings. ECG Data Interpretation: The [place] HPI <ANGELA Hebert - Last Filed: 07/16/21 23:32> General Mode of arrival: ambulatory . Date/Time Provider Initiated Documentation: 07/15/21 13:39 . Limitations to Documentation: no limitations . Information obtained by: patient and RN notes reviewed . History of Present Illness 81 year old M presents to the emergency department with the chief complaint of chest and abdominal pain after trauma, described as moderate, with intensity rated at 7. Quality is described as aching, and is localized to the chest and abdomen. Patient reports no radiation. Patient started experiencing this minute(s) and it has been constant. Immobilization imp roves symptom(s), Movement worsens symptoms . Patient notes rash; denies cough, diaphoresis, fever/chills, nausea/vomiting, shortness of breath and weakness. Patient did receive the following treatments prior to arrival, none Related Data Home Medications Medication Instructions Recorded Confirmed Vitamin B-12 1 ml IM QMO. 90 Days 09/27/08 07/15/21 aspirin 81 mg PO QPM 04/26/21 07/15/21 diltiazem HCl 120 mg PO BID 04/26/21 07/15/21 lisinopril 40 mg PO DAILY 04/26/21 07/15/21 metoprolol succinate 50 mg PO DAILY 04/26/21 07/15/21 metoprolol succinate 75 mg PO DAILY 04/26/21 07/15/21 multivitamin 1 tab PO QAM 04/26/21 07/15/21 primidone 250 mg PO BID 04/26/21 07/15/21 tamsulosin 0.4 mg PO QHS #30 cap 09/05/21 11/22/21 Previous Rx's Medication Instructions Recorded tamsulosin 0.4 mg PO QHS #30 cap 04/28/21 Allergies Allergy/AdvReac Type Severity Reaction Status Date / Time No Known Allergies Allergy Unverified 07/15/21 14:36 General Stated Complaint: Trauma VITA: 3 Review of Systems <ANGELA Hebert - Last Filed: 07/16/21 23:32> Constitutional Constitutional: Reports as per HPI, Denies chills, Denies fever(s), Denies headache(s) and Denies weakness Eyes Eyes: Reports as per HPI, Denies blurry vision, Denies change in vision and Denies loss of vision ENT Ears, Nose, Mouth, and Throat: Denies headache(s) Cardiovascular Cardiovascular: Reports as per HPI, Reports chest pain (right sided chest wall pain) and Denies dyspnea Respiratory Respiratory: Reports as per HPI, Denies cough, Denies pain on inspiration, Denies pain with cough and Denies dyspnea Gastrointestinal Gastrointestinal: Reports as per HPI, Reports abdominal pain, Denies nausea and Denies vomiting Genitourinary Genitourinary: Reports as per HPI and Denies urinary incontinence Musculoskeletal Musculoskeletal: Reports as per HPI Integumentary/Breasts Skin/Breast: Reports as per HPI and Denies rash Neurologic Neurologic: Reports as per HPI, Denies abnormal movements, Denies abnormal spee ch, Denies headache(s), Denies lack of coordination, Denies localized weakness, Denies loss of vision, Denies seizure-like activity, Denies paresthesias and Denies weakness PFSH <ANGELA Hebert - Last Filed: 07/16/21 23:32> Active Problem List Back contusion (Acute) Contusion of hip (Acute) Multiple transverse process fractures (Acute) Chest wall contusion (Acute) Trauma (Acute) Prostatitis (Acute) Chronic atrial fibrillation (Chronic) Acute pyelonephritis (Acute) Prostate enlargement (Chronic) Medical History Atrial fibrillation Renal stones Social History Smoking/Tobacco Use Status: Former Tobacco Use Smoking risk assessment performed?: Yes Alcohol Intake: current Alcohol Intake frequency: 0-2 drinks per day Drug use: Never Substance use type: does not use Do you feel safe at home: Yes Do you feel safe in your relationship?: Yes Exam <ANGELA Hebert - Last Filed: 07/16/21 23:32> Const General: cooperative, healthy appearing, comfortable, no acute distress, well developed and well groomed Nutritional Appearance: average body habitus and well nourished Orientation: alert, awake and oriented x3 HENMT Head: normal to inspection, no palpable skull fracture, normocephalic and atraumatic Ears: hearing grossly normal bilaterally, external ears normal and TM's normal bilaterally General nose exam: external nose normal Mouth: oral mucosae normal, lip normal and tongue normal Throat: posterior oropharynx normal Eyes General: appearance normal, both eyes and all related structures Neck Neck: normal visual inspection, full ROM, no lymphadenopathy, trachea midline and supple Chest Chest: normal inspection of the chest, normal palpation of entire chest wall, no crepitus, no localized rib tenderness and tenderness (non-focal pain along right lower chest wall) Resp Effort & Inspection: normal respiratory effort, able to speak in complete sentences and no respiratory distress Auscultation: clear to auscultation bilaterally, no rales, no rhonchi and no wheezes Cardio Rate: regular rate Rhythm: regular rhythm Heart Sounds: S1 normal and S2 normal GI Inspection: normal to inspection, no abdominal wall ecchymosis, no edema and non-distended Palpation: soft, no hepatosplenomegaly, not firm, no guarding, no pulsatile masses, not rigid and tender in the RUQ Auscultation: normal bowel sounds Abdomen image: 1. Area of ecchymosis, no palpable deformity Back/Spine/Pelvis Back: no CVA tenderness Cervical Spine: normal cervical lordosis and cervical ROM normal Thoracic/Lumbar Spine: thoracic and lumbar spine normal to inspection, thoraco- lumbar ROM normal, No thoraco-lumbar ROM limited, No thoraco-lumbar spasm and No thoracic spinal tenderness Pelvis: no pain with anterior-posterior compression and no pain with lateral compression Skin General skin exam: ecchymosis (as above) Neuro General: patient alert, patient awake, patient oriented x3, gait normal, tone normal and moves all extremities Cranial Nerves: CN's II-XI intact bilaterally Cognition: normal cognition Speech: speech normal Gait: normal gait Motor: muscle tone normal throughout and strength 5/5 throughout Sensory Exam: no sensory deficits noted (no saddle paresthesias) Extrem General: normal to inspection, full ROM, capillary refill normal, no pedal edema and no calf tenderness Psych Appearance: grossly normal and well kempt Mental Status: mental status grossly normal Speech and Movement: speech and movement normal Course <ANGELA Hebert - Last Filed: 07/16/21 23:32> Vital Signs Vital signs: Vital Signs Temperature 36.5 C 07/15/21 13:28 Pulse 85 07/15/21 13:28 Respiratory Rate 20 07/15/21 13:28 Blood Pressure 147/70 H 07/15/21 13:28 Pulse Oximetry 98 07/15/21 13:28 Temperature 36.5 C 07/15/21 13:28 Temperature Source Skin 07/15/21 13:28 Pulse 85 07/15/21 13:28 Respiratory Rate 20 07/15/21 13:28 Blood Pressure 147/70 H 07/15/21 13:28 Blood Pressure Position Sitting 07/15/21 13:28 Pulse Oximetry 98 07/15/21 13:28 Oxygen Delivery Method Room Air 07/15/21 13:28 Oxygen Flow Rate 0 07/15/21 13:28 Pain Level 7 07/15/21 13:28 Sign Out <ANGELA Hebert - Last Filed: 07/16/21 23:32> Sign Out Data: Sign Out Comment: Care transition to Ligia Tucker NP with imaging pending. Patient was thrown from a wagon by a horse. He declined any analgesics. Hemodynamically stable. Labs are reassuring. Concerned for potential rib fractures. Strep chest and upper abdomen. CT pending. Patient has had a cough for the past 2 weeks. If the patient imaging does not acute need for transfer or admission, plan to obtain outpatient COVID-19 testing. Patient is admitted. He did not suffer any head, neck, back trauma. Last updated by Hallie Watson PA at 07/15/21 16:35
[2021-07-15 14:39] LABS: Abs Immature Grans 0.02 10^3/uL (0.0-0.06); Absolute Basophil Count 0.06 10^3/uL (0.0-0.2); Absolute Eosinophil Count 0.13 10^3/uL (0.0-0.7); Absolute Lymphocyte Count 1.35 10^3/uL (1.2-3.4); Absolute Monocyte Count 0.66 10^3/uL (0.1-0.8); Absolute Neutrophil Count 5.58 10^3/uL (1.2-6.7); Basophils % 0.8; Eosinophils % 1.7; HCT 41.3 % (40.0-50.0); HGB 13.8 g/dL (13.5-17.5); Immature Grans % 0.3; Lymphocytes % 17.3; MCH 30.4 pg (27.0-33.0); MCHC 33.4 % (32.0-36.0); Monocytes % 8.5; Neutrophils % 71.4; Nucleated RBC 0 %; Platelet Count 143 10^3/uL (130-400); RBC 4.54 10^6/uL (4.36-5.78); RDW 13.1 % (11.8-14.1); RDW-SD 43.8 fL
[2021-07-15] MEDS: Normal Saline 1,000 ML 500 ML IV (14:45)
[2021-07-15] MEDS: Normal Saline Flush 10 ML SYR IVP (14:45)
[2021-07-15 14:56] LABS: ALT 29 U/L (16-63); AST 23 U/L (15-37); Albumin 3.7 g/dL (3.4-5.0); Alkaline Phosphatase 105 U/L (46-116); Anion Gap 5.8 mmol/L (3-11); BUN 21 mg/dL (7-18); Bilirubin, Total 0.3 mg/dL (0.2-1.0); CO2 30.2 mmol/L (21.0-32.0); CREATININE 0.9 mg/dL (0.70-1.30); Calcium 8.5 mg/dL (8.5-10.1); Chloride 104 mmol/L (98-107); Glucose 109 mg/dL (74-106); Sodium 140 mmol/L (136-145); Total Protein 7.5 g/dL (6.4-8.2)
[2021-07-15 14:57] LABS: Troponin I < 0.05 ng/mL (<0.06)
[2021-07-15 15:03] LABS: Lipase 115 U/L (73-393); Magnesium 2.2 mg/dL (1.8-2.4)
[2021-07-15] MEDS: Normal Saline - Diluent 50 ML VIAL IV (15:48)
[2021-07-15] MEDS: Omnipaque 350 MG/ML 100 ML BTL IJ (15:48)
--- NOTE | 2021-07-15 15:52 | DI.CT_ITS ---
Exam(s) CT CHEST/ABD/PEL W EXAM: CT CHEST/ABD/PEL W TECHNIQUE: CT examination of the chest, abdomen, and pelvis was performed with bolus infusion of 100 cc of Omnipaque 350. COMPARISON: CT CT LUMBAR SPINE RECONS from 06/03/2021 FINDINGS: There is no evidence of a thoracic vascular injury. The lungs are predominantly clear with some appa rent fibrotic changes. 4 millimeter right middle lobe noncalcified intrapulmonary nodule noted, 12 m onth follow-up CT recommended if the patient is a smoker. No pneumothorax or pleural effusion. No mediastinal hematoma. No adenopathy in the chest. Tracheobron chial tree appears intact. There are 2 apparent hepatic cysts. No evidence of acute hepatic injury. Prior cholecystectomy note d, no biliary dilatation. Pancreas is. No evidence of acute splenic injury.. Adrenals and kidneys are unremarkable. No evidence of urinary tract injury or obstruction. No abdominal or pelvic vascular injury seen. No abdominal or pelvic adenopathy. No significant abdomi nal wall hernia or hematoma. No evidence of bowel injury. No fracture identified in the region surveyed. IMPRESSION: No evidence of acute injury of the chest, abdomen, or pelvis. RADIATION DOSE DELIVERED: 1,250.87mGy.cm Total DLP 1,250.87mGy.cm Total DLP CTDIvol DATA REPOSITORY: All CT scans at this facility are submitted to the National Radiology Data Registry (NRDR) Dose Index Registry (DIR) with the [employer] (A[employer]). RADIATION OPTIMIZATION: All CT scans at this facility use at least one of these dose optimization te chniques: automated exposure control; mA and/or kV adjustment per patient size (includes targeted exa ms where dose is matched to clinical indication); or iterative reconstruction.
--- NOTE | 2021-07-15 16:40 | DI.VRAD_ITS ---
PROCEDURE INFORMATION: Exam: CT Chest With Contrast; Diagnostic Exam date and time: 07/15/2021 2:18 PM Age: 81 years old Clinical indication: Injury or trauma; Blunt trauma (contusions or hematomas); Injury details: Fall from wagon by horse, pain - chest/upper abd TECHNIQUE: Imaging protocol: Diagnostic computed tomography of the chest with contrast. 3D rendering (Not supervised by radiologist): MIP and/or 3D reconstructed images were created by the technologist. Radiation optimization: All CT scans at this facility use at least one of these dose optimization techniques: automated exposure control; mA and/or kV adjustment per patient size (includes targeted exams where dose is matched to clinical indication); or iterative reconstruction. Contrast material: OMNI 350; Contrast volume: 100 ml; Contrast route: INTRAVENOUS (IV); COMPARISON: CT ABDOMEN PELVIS W 06/03/2021 8:10 PM FINDINGS: Lungs: Slight reticular subpleural densities in both lungs. This is likely minimal fibrosis. Areas of very slight subpleural nodularity in both lungs most conspicuous in the right middle lobe on axial series 4, image 40 where there is a 5 mm nodule. Pleural spaces: Unremarkable. No pneumothorax. No pleural effusion. Heart: Coronary artery calcifications. Mild cardiac enlargement. Mediastinal space: The small esophageal hiatal hernia. Aorta: Aortic calcifications. Lymph nodes: Unremarkable. No enlarged lymph nodes. Bones/joints: Degenerative arthritis in the spine. Soft tissues: Unremarkable. IMPRESSION: 1. No acute findings 2. Minimal subpleural scarring in both lungs 2. Few tiny subpleural nodules the largest measuring 5 mm.For patients at low risk (minimal or absent history of smoking and of other known risk factors), no routine follow-up is indicated. For patients at high risk (history of smoking or of other known risk factors), consider optional CT Chest at 12 months. (Reference: Mason) References: Mason Dupree, et al. Guidelines for Management of Incidental Pulmonary Nodules Detected on CT Images: From the Fleischner Society 2017. Radiology. 2017;284(1):228-243. PROCEDURE INFORMATION: Exam: CT Abdomen And Pelvis With Contrast Exam date and time: 07/15/2021 2:18 PM Age: 81 years old Clinical indication: Injury or trauma; Blunt trauma (contusions or hematomas); Injury details: Fall from wagon by horse, pain - chest/upper abd TECHNIQUE: Imaging protocol: Computed tomography of the abdomen and pelvis with contrast. 3D rendering (Not supervised by radiologist): MIP and/or 3D reconstructed images were created by the technologist. Radiation optimization: All CT scans at this facility use at least one of these dose optimization techniques: automated exposure control; mA and/or kV adjustment per patient size (includes targeted exams where dose is matched to clinical indication); or iterative reconstruction. Contrast material: OMNI 350; Contrast volume: 100 ml; Contrast route: INTRAVENOUS (IV); COMPARISON: CT ABDOMEN PELVIS W 06/03/2021 8:10 PM FINDINGS: Liver: 3.6 cm stable cyst anterior left hepatic lobe and 1.5 cm cyst inferior right hepatic lobe. Gallbladder and bile ducts: Cholecystectomy with associated mild intrahepatic and common bile duct dilatation. Pancreas: Normal. No ductal dilation. Spleen: Normal. No splenomegaly. Adrenal glands: Normal. No mass. Kidneys and ureters: 1.4 cm benign cyst right kidney. Stomach and bowel: Bulky diverticulosis without evidence of diverticulitis. Appendix: No evidence of appendicitis. Intraperitoneal space: Unremarkable. No free air. No significant fluid collection. Vasculature: Vascular calcifications. Lymph nodes: Unremarkable. No enlarged lymph nodes. Urinary bladder: Unremarkable as visualized. Reproductive: Prostate enlargement. Bones/joints: Degenerative arthritis in the spine and pelvis. Healed or healing fractures of the left transverse processes of L4 and L5. Soft tissues: Unremarkable. IMPRESSION: 1. No acute findings 2. Benign hepatic and renal cysts 3. 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 Ordering:KATHLEEN Sterling MD
[2021-07-15 18:08] VITALS: BP 150/100; PULSE 67; RESP 17; TEMP 36.7; O2SAT 99
[2021-07-17 15:08] LABS: COVID-19 RT-PCR UVMMC Result Negative (Negative)
== END 2021-07-15 18:10 | disposition home or self-care (01) ==
PROVIDERS: Physician Assistant; Emergency Provider Registered Nurse Emergency; PCP Family Medicine
DX: S20.211A Contusion of right front wall of thorax, initial encounter (principal); R10.10 Upper abdominal pain, unspecified; W17.89XA Other fall from one level to another, initial encounter; R05.9 Cough, unspecified; Z20.822 Contact with and (suspected) exposure to COVID-19
CPT/HCPCS: 36415; 74177; 80053; 83690; 96360; 96361; 99285; U0003; 71260; 83735; 84484; 85025; 99284; J3490

== ENCOUNTER 2022-11-10 12:37 | Emergency (ER) | payer MEDICARE, SELFPAY ==
[2022-11-10 12:50] VITALS: BP 150/95; PULSE 68; RESP 17; TEMP 36.5; O2SAT 96
--- NOTE | 2022-11-10 13:21 | ED.GENADUL_ITS ---
Discharge Plan Disposition Patient Disposition: Home Discharge Details Clinical Impression: Hematoma Primary Care Provider: Matt Soler ED Provider: Chary Bright Home Meds and New Rx's Prescriptions: Continued VITAMIN B-12 1,000 MCG/ML VIAL 1 ml IM QMO. 90 Days multivitamin Tablet 1 tab PO QAM diltiazem HCl 120 mg Capsule,Extended Release 12 Hr 120 mg PO BID aspirin 81 mg Tablet 81 mg PO QPM metoprolol succinate 50 mg Tablet Extended Release 24 Hr 100 mg PO DAILY primidone 250 mg Tablet 250 mg PO BID metoprolol succinate 25 mg Tablet Extended Release 24 Hr 100 mg PO DAILY Rx Instructions: take with a 50mg tablet for total dose of 75mg daily. lisinopril 40 mg Tablet 40 mg PO DAILY tamsulosin 0.4 mg capsule 0.4 mg PO QHS Qty: 30 1RF Discharge Instructions Instructions: Hematoma (ED) Additional Instructions: Ice, Tylenol as needed for pain Wrap your wrist for compression and apply ice topically to help with the swelling and bruising Please return for repeat x-ray in 1 week with persistent pain and swelling Return earlier should you have new or worsening complaints Referrals: Matt Soler [Primary Care Provider] - Discharge Data Discharge Date/Time-TO BE ENTERED AT DEPARTURE: 11/10/22 13:53 Medical Decision Making 82-year-old male presents with injury to right wrist, secondary to age and c omplaint, right wrist was ordered x-ray, x-ray does not show evidence of acute abnormality per radiology interpretation my review Placed in Vadim wrap Repeat x-ray in 1 week with persistent pain Return precautions reviewed and patient expressed understanding Medical Records Medical records reviewed: Yes I reviewed the patient's medical records. Lab Data Lab results reviewed: Yes I reviewed the patient's lab results. HPI General Date/Time Provider Initiated Documentation: 11/10/22 13:18 . HPI Narrative: This 82-year-old gentleman with history of atrial fibrillation presents with rep ort of right wrist injury. He had a rip time around his wrist while doing some pony training and states that the pony Colts, causing pain to his right wrist. He denies any additional complaints at this time. Denies any additional injuries. Denies any history of coagulopathy. Denies strength or sensation change. Related Data Home Medications Medication Instructions Recorded Confirmed Vitamin B-12 1 ml IM QMO. 90 days 09/27/08 11/10/22 aspirin 81 mg tablet 81 mg PO QPM 04/26/21 11/10/22 diltiazem HCl 120 mg 120 mg PO BID 04/26/21 11/10/22 capsule,extended release 12 hr lisinopril 40 mg tablet 40 mg PO DAILY 04/26/21 11/10/22 metoprolol succinate 25 mg 100 mg PO DAILY 04/26/21 07/15/21 tablet,extended release 24 hr metoprolol succinate 50 mg 100 mg PO DAILY 04/26/21 11/10/22 tablet,extended release 24 hr multivitamin 1 tab PO QAM 04/26/21 11/10/22 primidone 250 mg tablet 250 mg PO BID 04/26/21 11/10/22 tamsulosin 0.4 mg capsule 0.4 mg PO QHS #30 caps 04/28/21 11/10/22 Previous Rx's Medication Instructions Recorded tamsulosin 0.4 mg capsule 0.4 mg PO QHS #30 caps 04/28/21 Allergies Allergy/AdvReac Type Severity Reaction Status Date / Time No Known Allergies Allergy Unverified 11/10/22 12:54 General Stated Complaint: Orthopedic VITA: 4 PFSH All Active Problems (Updated 11/10/22 @ 13:46 by ANGELA Richards) Back contusion (Acute) Contusion of hip (Acute) Multiple transverse process fractures (Acute) Chest wall contusion (Acute) Trauma (Acute) Hematoma (Acute) Prostatitis (Acute) Chronic atrial fibrillation (Chronic) Acute pyelonephritis (Acute) Prostate enlargement (Chronic) Active Problem List Back contusion (Acute) Contusion of hip (Acute) Multiple transverse process fractures (Acute) Chest wall contusion (Acute) Trauma (Acute) Prostatitis (Acute) Chronic atrial fibrillation (Chronic) Acute pyelonephritis (Acute) Prostate enlargement (Chronic) Medical History Atrial fibrillation Renal stones Social History Smoking/Tobacco Use Status: Former Tobacco Use Smoking risk assessment performed?: Yes Alcohol Intake: current Alcohol Intake frequency: 0-2 drinks per day Drug use: Never Substance use type: does not use Do you feel safe at home: Yes Do you feel safe in your relationship?: Yes Exam Const General: cooperative, comfortable and no acute distress Orientation: alert and oriented x3 HENMT Head: normal to inspection Extrem Other: Right wrist with hematoma, neurovascularly intact, tenderness Course Vital Signs Vital signs: Vital Signs Temperature 36.5 C 11/10/22 12:50 Pulse 68 11/10/22 12:50 Respiratory Rate 17 11/10/22 12:50 Blood Pressure 150/95 H 11/10/22 12:50 Pulse Oximetry 96 11/10/22 12:50 Temperature 36.5 C 11/10/22 12:50 Temperature Source Tympanic 11/10/22 12:50 Pulse 68 11/10/22 12:50 Respiratory Rate 17 11/10/22 12:50 Respiratory Effort Normal 11/10/22 12:53 Blood Pressure 150/95 H 11/10/22 12:50 Blood Pressure Position Supine 11/10/22 12:50 Pulse Oximetry 96 11/10/22 12:50 Oxygen Delivery Method Room Air 11/10/22 12:50 Oxygen Flow Rate 0 11/10/22 12:50 Pain Level 0 11/10/22 12:50 PAWSS Have you Been Recently Intoxicated or Drunk Within the Last 30 days?: No Have you Ever Experienced Previous Episodes of Alcohol Withdrawal?: No Have you ever Experienced Withdrawal Seizures?: No Have you ever Experienced Delirium Tremens(DT)s?: No Have you ever undergone Alcohol Rehabilitation Treatment (i.e, inpt ot outpatient treatment programs)?: No Have you ever Experienced Blackouts?: No Have you ever Combined Alcohol with other Downers within the last 90 days?: No Have you ever Combined Alcohol with any other Substance of Abuse during the last 90 days?: No Result: 0
--- NOTE | 2022-11-10 13:33 | DI.RAD_ITS ---
Exam(s) XR WRIST RT COMPLETE EXAM: XR WRIST RT COMPLETE CLINICAL HISTORY: injury to wrist and forearm, horse. TECHNIQUE: 2D digital imaging was performed. COMPARISON: No exams were available for comparison FINDINGS: 3 views No evidence of acute fracture nor dislocation. No significant ulnar variance. Scaphoid and scapholu jordy distance appear unremarkable. Degenerative changes in the 1st carpometacarpal joint are noted. Also vascular calcification both th e radial and ulnar arteries noted IMPRESSION: No acute fractures identified. DATA REPOSITORY: RADIATION DOSE DELIVERED:
== END 2022-11-10 13:53 | disposition home or self-care (01) ==
PROVIDERS: Emergency Provider Physician Assistant; PCP Family Medicine
DX: S60.211A Contusion of right wrist, initial encounter (principal); I48.91 Unspecified atrial fibrillation; Z79.82 Long term (current) use of aspirin; X58.XXXA Exposure to other specified factors, initial encounter
CPT/HCPCS: 99283; 73110; 99282

== ENCOUNTER 2023-11-18 10:27 | Outpatient (REF) | payer MEDICARE, SELFPAY ==
[2023-11-17 10:20] LABS: Bilirubin Negative (Negative); Blood Negative (Negative); Clarity Clear (Clear); Glucose Negative (Negative); Ketones Negative (Negative); Leukocyte Esterase Negative (Negative); Nitrite Negative (Negative); Specific Gravity 1.015 (1.005-1.025)
== END 2023-11-18 10:28 | disposition home or self-care (01) ==
LOC: LBN 10:27
PROVIDERS: PCP Family Medicine; Referring Provider Urology; Visit Provider Urology
DX: R39.89 Other symptoms and signs involving the genitourinary system (principal); R82.998 Other abnormal findings in urine; M54.89 Other dorsalgia
CPT/HCPCS: 81003

== ENCOUNTER 2023-11-27 09:54 | Emergency (ER) | payer MEDICARE, SELFPAY ==
[2023-11-27 10:07] VITALS: BP 151/80; PULSE 58; RESP 18; TEMP 36.7; O2SAT 97
--- NOTE | 2023-11-27 11:23 | ED.GENADUL_ITS ---
Discharge Plan Disposition Patient Disposition: Home Condition: Good Discharge Details Clinical Impression: Pain in right lumbar region of back Primary Care Provider: Matt Soler ED Provider: Yessenia Carlos Home Meds and New Rx's Prescriptions: New lidocaine [Lidoderm] 5 % adhesive patch,medicated 1 patch topical DAILY Qty: 15 0RF Rx Instructions: leave on most painful area for up to 12 hrs No Action VITAMIN B-12 1,000 MCG/ML VIAL 1 ml IM QMO. 90 Days multivitamin Tablet 1 tab PO QAM diltiazem HCl 120 mg Capsule,Extended Release 12 Hr 120 mg PO BID aspirin 81 mg Tablet 81 mg PO QPM metoprolol succinate 50 mg Tablet Extended Release 24 Hr 100 mg PO DAILY primidone 250 mg Tablet 250 mg PO BID metoprolol succinate 25 mg Tablet Extended Release 24 Hr 100 mg PO DAILY Rx Instructions: take with a 50mg tablet for total dose of 75mg daily. lisinopril 40 mg Tablet 40 mg PO DAILY tamsulosin 0.4 mg capsule 0.4 mg PO QHS Qty: 30 1RF hydrochlorothiazide 25 mg tablet 25 mg PO DAILY Patient Comments: TAKE ONE TABLET BY MOUTH EVERY DAY Discharge Instructions Instructions: Low Back Strain (ED) Additional Instructions: 1. Call Dr. Soler today or Thursday for a follow-up appointment and recheck. 2. Return to the emergency department if you develop any numbness or tingling in the genital or rectal area. Develop problems controlling bowels or bladder, or if you develop abdominal pain, fever or any new or worrisome symptoms. 3. Alternate 1000mg of acetaminophen (Tylenol) every 3 hours with 400-600mg of ibuprofen (Motrin/Advil) as needed for pain or fever. Do not take more than 4000mg in 24 hours. Do not take acetaminophen if you have a history of liver disease. Do not take ibuprofen if you have a history of gastrointestinal bleeding or a history of kidney disease. 4. We have sent a prescription for Lidoderm patches to use once a day for 12 hours, to your pharmacy. Discharge Data Discharge Physician: Yessenia Carlos [facility] General Date/Time Provider Initiated Documentation: 11/27/23 09:59 . Information obtained by: patient . HPI Narrative: Time seen was 11:23 AM in bed 10 patient is an 83-year-old male who presents with a right upper lumbar back pain which began a month ago. He said he did fall on his back but he was experiencing the pain prior to the fall. It got worse this morning while sitting in a chair. He does have a history of intervertebral disc disease but has never had surgery on his back. He denies any saddle anesthesia, bowel or bladder incontinence or retention, radiation down his legs, hematuria, dysuria fever or chills. He denies any abdominal pain. He has taken acetaminophen with some relief. He tells me this feels different than his back pain that he experienced secondary to his disc disease. He states the pain is moderate in severity. It does not radiate. It is agg ravated by movement and relieved by rest. He denies any rashes. Related Data Home Medications Medication Instructions Recorded Confirmed Vitamin B-12 1 ml IM QMO. 90 days 09/27/08 11/27/23 aspirin 81 mg tablet 81 mg PO QPM 04/26/21 11/27/23 diltiazem HCl 120 mg 120 mg PO BID 04/26/21 11/27/23 capsule,extended release 12 hr lisinopril 40 mg tablet 40 mg PO DAILY 04/26/21 11/27/23 metoprolol succinate 25 mg 100 mg PO DAILY 04/26/21 11/27/23 tablet,extended release 24 hr metoprolol succinate 50 mg 100 mg PO DAILY 04/26/21 11/27/23 tablet,extended release 24 hr multivitamin 1 tab PO QAM 04/26/21 11/27/23 primidone 250 mg tablet 250 mg PO BID 04/26/21 11/27/23 tamsulosin 0.4 mg capsule 0.4 mg PO QHS #30 caps 04/28/21 11/27/23 hydrochlorothiazide 25 mg tablet 25 mg PO DAILY 11/27/23 11/27/23 lidocaine 5 % topical patch 1 patch topical DAILY #15 ea 11/27/23 (Lidoderm) Previous Rx's Medication Instructions Recorded tamsulosin 0.4 mg capsule 0.4 mg PO QHS #30 caps 04/28/21 lidocaine 5 % topical patch 1 patch topical DAILY #15 ea 11/27/23 (Lidoderm) Allergies Allergy/AdvReac Type Severity Reaction Status Date / Time No Known Allergies Allergy Unverified 11/27/23 10:08 General Stated Complaint: FlankPain VITA: 3 Review of Systems Narrative: see hpi Genitourinary Comments: The patient had prostate cancer and 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 He denies any abdominal pain fever dysuria or hematuria Exam Narrative Exam Narrative: Patient is a well-developed well-nourished male in no acute distress. He is alert and oriented. GCS is 15. He has a hearing aid in the right ear. Course 1443 PM I have updated the patient on the radiographs, urinalysis and blood work. He does not want anything stronger than Tylenol or ibuprofen for pain. I have advised him to follow-up with his primary care provider next week and to return here for any new or worrisome symptoms such as saddle anesthesia, bowel or bladder incontinence or retention, abdominal pain or any concerns. The patient/family/caregiver voiced agreement and understanding of the discharge instructions and plan for outpatient follow-up. There were advised to return to the Emergency Department for any new or worrisome symptoms or concerns. Vital Signs Vital signs: Vital Signs Temperature 36.7 C 11/27/23 10:07 Pulse 58 L 11/27/23 10:07 Respiratory Rate 18 11/27/23 10:07 Blood Pressure 151/80 H 11/27/23 10:07 Pulse Oximetry 97 11/27/23 10:07 Temperature 36.7 C 11/27/23 10:07 Temperature Source Temporal Artery Scan 11/27/23 10:07 Pulse 58 L 11/27/23 10:07 Respiratory Rate 18 11/27/23 10:07 Respiratory Effort Normal, Non-Labored 11/27/23 10:10 Blood Pressure 151/80 H 11/27/23 10:07 Blood Pressure Position Sitting 11/27/23 10:07 Pulse Oximetry 97 11/27/23 10:07 Oxygen Delivery Method Room Air 11/27/23 10:07 Oxygen Flow Rate 0 11/27/23 10:07 Pain Level 7 11/27/23 10:07 Lab/Test Results Lab/Test Results: Normal white count, normal H&H, normal platelets slightly elevated carbon monoxide. Normal renal function urine remarkable only for slightly elevated urobilinogen. No evidence of infection Medical Decision Making Medical Records Medical records reviewed: Yes I reviewed the patient's medical records. Medical records narrative: This is a 82-year-old male who presents with right sided upper lumbar lower thoracic back pain. He has fallen but tells me that his pain was there prior to the fall. He is not on therapeutic anticoagulants. He does have a history of prostate cancer and does self cath but has not had fever or chills and has not noticed any cloudiness or foul smell to his urine. I doubt he has a kidney stone given that he has not had hematuria and his symptoms have been going on for 1 month. He does have a history of disc disease but tells me this pain feels different. He is denying any abdominal pain. There is no radiation down the legs and he has symmetric reflexes in his patella and ankle jerks. There is a negative straight leg raise. There were no embolic lesions on his feet and he has distal pulses intact. My plan is to obtain blood work to check white count and H&H as well as differential looking for left shift. I will check a comprehensive metabolic panel to evaluate his liver and renal function as well as his electrolytes. We will check a urine for hematuria and infection. I will order a CTA of the chest abdomen and pelvis to ensure he does not have an aneurysm or dissection given his age. I will write for IV acetaminophen. He is hemodynamically stable and will likely be discharged if he does not have evidence of a vascular etiology to his back pain. Imaging Data Radiologic Study: Imaging: CT Scan (CTA thorax and abdomen) Radiologist's impression: IMPRESSION: 1. No evidence of aortic dissection, as per request. No significant aneurysms. 2. Cardiomegaly but no pericardial effusions. 3. Stable benign cysts in the liver. 4. Previous cholecystectomy again noted. Size of the CBD is commensurate with patient's advanced age and post cholecystectomy status. Enlarged prostate gland. Lab Data Lab results reviewed: Yes I reviewed the patient's lab results. Quality:[facility] Health Related Social Needs: No Data to Display Critical Care Time Critical Care Time Critical Care Time: Yes Total Critical Care Time: 32 Attestation: This includes time at the bedside, time reviewing records, labs and radiographs. [facility] All Active Problems Pain in right lumbar region of back (Acute) Trauma (Acute) Chest wall contusion (Acute) Multiple transverse process fractures (Acute) Contusion of hip (Acute) Back contusion (Acute) Prostatitis (Acute) Chronic atrial fibrillation (Chronic) Acute pyelonephritis (Acute) Prostate enlargement (Chronic) Medical History Atrial fibrillation Renal stones Social History Smoking/Tobacco Use Status: Former Tobacco Use Smoking risk assessment performed?: Yes Alcohol Intake: current Alcohol Intake frequency: 0-2 drinks per day Drug use: Never Substance use type: does not use Housing: house Do you feel safe at home: Yes Do you feel safe in your relationship?: Yes
[2023-11-27 11:44] LABS: Bilirubin Negative (Negative); Blood Negative (Negative); Clarity Clear (Clear); Glucose Negative (Negative); Ketones Negative (Negative); Leukocyte Esterase Negative (Negative); Nitrite Negative (Negative); Specific Gravity 1.015 (1.005-1.025)
[2023-11-27 11:53] LABS: Abs Immature Grans 0.02 10^3/uL (0.0-0.06); Absolute Basophil Count 0.05 10^3/uL (0.0-0.2); Absolute Eosinophil Count 0.08 10^3/uL (0.0-0.7); Absolute Lymphocyte Count 1.36 10^3/uL (1.2-3.4); Absolute Monocyte Count 0.57 10^3/uL (0.1-0.8); Absolute Neutrophil Count 3.95 10^3/uL (1.2-6.7); Basophils % 0.8; Eosinophils % 1.3; HGB 14.6 g/dL (13.5-17.5); Immature Grans % 0.3; Lymphocytes % 22.6; MCH 31.1 pg (27.0-33.0); MCHC 33.2 % (32.0-36.0); MCV 94 fL (80-95); MPV 10.4 fL (8.0-11.0); Monocytes % 9.5; Neutrophils % 65.5; Platelet Count 131 10^3/uL (130-400); RBC 4.69 10^6/uL (4.36-5.78); RDW-SD 44.7 fL; WBC 6.03 10^3/uL (4.4-10.8)
[2023-11-27 12:10] LABS: ALT 33 U/L (16-63); AST 30 U/L (15-37); Albumin 3.7 g/dL (3.4-5.0); Alkaline Phosphatase 95 U/L (46-116); Anion Gap 5.2 mmol/L (3-11); BUN 15 mg/dL (7-18); Bilirubin, Total 0.6 mg/dL (0.2-1.0); CO2 32.8 mmol/L (21.0-32.0); CREATININE 0.9 mg/dL (0.70-1.30); Calcium 8.7 mg/dL (8.5-10.1); Chloride 99 mmol/L (98-107); Estimated GFR 84.22 (mL/min/1.73m2); Glucose 85 mg/dL (74-106); Potassium 3.6 mmol/L (3.5-5.1); Sodium 137 mmol/L (136-145); Total Protein 8.6 g/dL (6.4-8.2)
[2023-11-27] MEDS: ACETAMINOPHEN 1,000 MG/100 ML BTL 400 MG IVPB (12:30)
[2023-11-27] MEDS: Normal Saline - Diluent 50 ML VIAL IJ (12:32)
[2023-11-27] MEDS: Omnipaque 350 MG/ML 500 ML BTL-Imaging package 125 ML IJ (12:34)
--- NOTE | 2023-11-27 12:42 | DI.CT_ITS ---
Exam(s) CT THORAX ABD/PEL CTA EXAM: CT THORAX ABD/PEL CTA CLINICAL HISTORY: RIGHT THORACOLUMBAR BACK PAIN. TECHNIQUE: Imaging Protocol: Axial computed tomography images with coronal and sagittal reformatted images were created and reviewed CONTRAST MATERIAL: Intravenous: Omnipaque 350 Contrast volume:100 ml Oral: None COMPARISON: CT CT CHEST/ABD/PEL W from 07/15/2021 FINDINGS: CHEST: AORTA: Diameter of the ascending thoracic aorta is upper normal for this age group. There is no evide nce of aortic dissection. Diameter of the descending thoracic aorta is upper normal. There is also no evidence of significant abdominal aortic aneurysm. The common iliac arteries exhibit mild arterial m egaly but no true significant aneurysms. External iliac arteries and common femoral arteries appear u nremarkable. There is also no significant atherosclerotic narrowing and there are no dissections. LUNGS: There are no confluent infiltrates nor pleural effusions and there are no ominous pulmonary no dules.. MEDIASTINUM: There is no hilar nor mediastinal adenopathy. Visualized thyroid unremarkable. CARDIAC: Cardiomegaly noted. No pericardial effusion. ABDOMEN: There is no evidence of abdominal aortic aneurysm nor dissection.There is no aneurysmal dilatation of the common iliac arteries.The celiac and superior mesenteric arteries are patent. There is no ascites. LIVER: Cyst in the right hepatic lobe is again noted measuring 4 x 3.3 cm, unchanged. Another cyst po steriorly in the right hepatic lobe also unchanged measuring approximately 1.5 x 1.2 cm. There are no dilated intrahepatic ducts. GALLBLADDER/BILIARY: Gallbladder is again noted to be surgically absent. CBD size is commensurate wit h patient's post cholecystectomy status. PANCREAS: No evidence of pancreatic mass nor dilatation of the pancreatic duct. SPLEEN: Spleen is not enlarged. There are no intrasplenic lesions. Splenic and portal veins are aguilar nt. ADRENALS: There are no significant adrenal masses. KIDNEYS: No cysts evident. No calculi nor hydronephrosis. No solid renal masses. ABDOMINAL AORTA: See above LYMPH NODES: There is no retroperitoneal nor para-aortic adenopathy. No obvious mesenteric masses. ABDOMINAL WALL: No evidence of significant anterior abdominal wall hernia. GI: There is no evidence of bowel obstruction, free air, nor abscess. PELVIS: LYMPH NODES: There is no intrapelvic nor inguinal adenopathy. GI: No evidence of appendicitis.There is extensive sigmoid diverticulosis. There is no obvious acute diverticulitis. URINARY BLADDER: No calculi nor masses evident REPRODUCTIVE: Prostate is enlarged, measuring 6 cm wide by 4 cm AP. No obturator adenopathy. OSSEOUS: No significant osseous lesions. No new fractures evident. IMPRESSION: 1. No evidence of aortic dissection, as per request. No significant aneurysms. 2. Cardiomegaly but no pericardial effusions. 3. Stable benign cysts in the liver. 4. Previous cholecystectomy again noted. Size of the CBD is commensurate with patient's advanced age and post cholecystectomy status. Enlarged prostate gland. Called by myself to ER. RADIATION DOSE DELIVERED: Total DLP DATA REPOSITORY: All CT scans at this facility are submitted to the National Radiology Data Registry (NRDR) Dose Index Registry (DIR) with the [employer] (A[employer]). RADIATION OPTIMIZATION: All CT scans at this facility use at least one of these dose optimization te chniques: automated exposure control; mA and/or kV adjustment per patient size (includes targeted exa ms where dose is matched to clinical indication); or iterative reconstruction.
== END 2023-11-27 14:56 | disposition home or self-care (01) ==
PROVIDERS: Emergency Provider Emergency Medicine Emergency Medical Services; PCP Family Medicine
DX: M54.50 Low back pain, unspecified (principal); I51.7 Cardiomegaly; I48.91 Unspecified atrial fibrillation; Z90.49 Acquired absence of other specified parts of digestive tract; Z85.46 Personal history of malignant neoplasm of prostate; Z79.82 Long term (current) use of aspirin; Z87.891 Personal history of nicotine dependence
CPT/HCPCS: 71275; 80053; 96374; 99285; 74174; 81003; 85025; 99284; J0131

== ENCOUNTER 2024-02-29 15:41 | Emergency (ER) | payer MEDICARE, SELFPAY ==
[2024-02-29 15:51] VITALS: BP 154/76; PULSE 65; RESP 14; TEMP 36.9; O2SAT 98
--- NOTE | 2024-02-29 16:15 | DI.RAD_ITS ---
Exam(s) XR FINGER LT LITTLE EXAM: XR FINGER LT LITTLE EXAM DATE/TIME: CLINICAL HISTORY: Laceration, R/O Fracture, foreign body. TECHNIQUE: 2D digital imaging was performed of the left finger. Three views were obtained. PA/AP, oblique, and lateral views were obtained. COMPARISON: None. FINDINGS: BONES: No acute fracture is present. No bony destructive lesion is seen. JOINTS: No dislocation is present. Degenerative changes are seen in the interphalangeal joints catina cterized by joint space narrowing and osteophytes. The findings are most marked at the DIP joint. SOFT TISSUE: No radiopaque foreign body is identified. IMPRESSION: No definite fracture or dislocation. If symptoms persist, a follow-up examination in 10-14 days may be obtained for re-evaluation. No radiopaque foreign body. DATA REPOSITORY: RADIATION DOSE DELIVERED:
--- NOTE | 2024-02-29 18:01 | ED.GENADUL_ITS ---
Discharge Plan Disposition Patient Disposition: Home Condition: Stable Discharge Details Clinical Impression: Laceration of left little finger Primary Care Provider: Matt Soler ED Provider: Hipolito Ford Home Meds and New Rx's Prescriptions: Continued VITAMIN B-12 1,000 MCG/ML VIAL 1 ml IM QMO. 90 Days multivitamin Tablet 1 tab PO QAM diltiazem HCl 120 mg Capsule,Extended Release 12 Hr 120 mg PO BID aspirin 81 mg Tablet 81 mg PO QPM metoprolol succinate 50 mg Tablet Extended Release 24 Hr 100 mg PO DAILY primidone 250 mg Tablet 250 mg PO BID metoprolol succinate 25 mg Tablet Extended Release 24 Hr 100 mg PO DAILY Rx Instructions: take with a 50mg tablet for total dose of 75mg daily. lisinopril 40 mg Tablet 40 mg PO DAILY tamsulosin 0.4 mg capsule 0.4 mg PO QHS Qty: 30 1RF hydrochlorothiazide 25 mg tablet 25 mg PO DAILY Patient Comments: TAKE ONE TABLET BY MOUTH EVERY DAY lidocaine [Lidoderm] 5 % adhesive patch,medicated 1 patch topical DAILY Qty: 15 0RF Rx Instructions: leave on most painful area for up to 12 hrs Discharge Instructions Instructions: Laceration Repair With Stitches ED Additional Instructions: Return in 7 to 10 days for evaluation for suture removal. Return sooner if you have signs of infection such as spreading redness or yellow-white discharge from the wound HPI General Mode of arrival: ambulatory . Date/Time Provider Initiated Documentation: 02/29/24 16:05 . Limitations to Documentation: no limitations . Information obtained by: patient . History of Present Illness 83 year old M presents to the emergency department with the chief complaint of Left pinky finger laceration, described as mild, Quality is described as aching, and is localized to the left and upper extremity. Patient started experiencing this hour(s) (3) and it has been constant. No relieving factors improve symptom(s), No exacerbating factors reported . Patient notes no other symptoms.. Patient did receive the following treatments prior to arrival, none Related Data Home Medications Medication Instructions Recorded Confirmed Vitamin B-12 1 ml IM QMO. 90 days 09/27/08 02/29/24 aspirin 81 mg tablet 81 mg PO QPM 04/26/21 02/29/24 diltiazem HCl 120 mg 120 mg PO BID 04/26/21 02/29/24 capsule,extended release 12 hr lisinopril 40 mg tablet 40 mg PO DAILY 04/26/21 02/29/24 metoprolol succinate 25 mg 100 mg PO DAILY 04/26/21 02/29/24 tablet,extended release 24 hr metoprolol succinate 50 mg 100 mg PO DAILY 04/26/21 02/29/24 tablet,extended release 24 hr multivitamin 1 tab PO QAM 04/26/21 02/29/24 primidone 250 mg tablet 250 mg PO BID 04/26/21 02/29/24 tamsulosin 0.4 mg capsule 0.4 mg PO QHS #30 caps 04/28/21 02/29/24 hydrochlorothiazide 25 mg tablet 25 mg PO DAILY 11/27/23 02/29/24 lidocaine 5 % topical patch 1 patch topical DAILY #15 ea 11/27/23 02/29/24 (Lidoderm) Previous Rx's Medication Instructions Recorded tamsulosin 0.4 mg capsule 0.4 mg PO QHS #30 caps 04/28/21 lidocaine 5 % topical patch 1 patch topical DAILY #15 ea 11/27/23 (Lidoderm) Allergies Allergy/AdvReac Type Severity Reaction Status Date / Time No Known Allergies Allergy Unverified 02/29/24 15:55 General Stated Complaint: Orthopedic VITA: 3 Review of Systems All systems reviewed & are unremarkable except as noted in HPI and below Constitutional Constitutional: Denies chills, Denies fever(s) and Denies weakness Cardiovascular Cardiovascular: Denies chest pain and Denies dyspnea Respiratory Respiratory: Denies cough and Denies dyspnea Gastrointestinal Gastrointestinal: Denies abdominal pain, Denies nausea and Denies vomiting Integumentary/Breasts Skin/Breast: Denies rash Neurologic Neurologic: Denies weakness Exam Const General: no acute distress Orientation: alert [facility] Head: normal to inspection Ears: external ears normal General nose exam: external nose normal Mouth: moist mucous membranes Eyes General: appearance normal, both eyes and all related structures Neck Neck: normal visual inspection Resp Effort & Inspection: normal respiratory effort and able to speak in complete sentences Cardio Rate: regular rate Skin General skin exam: no rashes or lesions noted Neuro General: patient alert and patient oriented x3 Extrem General: full ROM and capillary refill normal Psych Mental Status: mental status grossly normal Course Vital Signs Vital signs: Vital Signs Temperature 36.9 C 02/29/24 15:51 Pulse 65 02/29/24 15:51 Respiratory Rate 14 02/29/24 15:51 Blood Pressure 154/76 H 02/29/24 15:51 Pulse Oximetry 98 02/29/24 15:51 Temperature 36.9 C 02/29/24 15:51 Pulse 65 02/29/24 15:51 Respiratory Rate 14 02/29/24 15:51 Respiratory Effort Normal, Non-Labored 02/29/24 16:21 Blood Pressure 154/76 H 02/29/24 15:51 Blood Pressure Position Sitting 02/29/24 15:51 Pulse Oximetry 98 02/29/24 15:51 Oxygen Delivery Method Room Air 02/29/24 15:51 Oxygen Flow Rate 0 02/29/24 15:51 Pain Level 0 02/29/24 15:51 Procedures Laceration Laceration 1: Site: hand Side (If applicable): left Size (cm): 1 Description: linear Depth: simple, single layer Local anesthetic: Lidocaine 1% Amount of anesthesia used (mL): 4 Pre-repair: wound explored and irrigated extensively Skin layer closed with: nylon Size (cm): 6-0 Number of sutures: 4 Technique: simple, interrupted Medical Decision Making 83-year-old male comes in with a left pinky laceration 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 Denies hitting his head or falling. He has a 1 cm laceration between the PIP and DIP joint on the palmar surface of his left hand on the pinky. He has full range of motion of the finger, intact sensation, intact cap refill he had x-rays done prior to my exam which did not show any acute findings. Will proceed with sutures. He has full range of motion and intact sensation so doubt tendon or neurovascular injury. Wound closed with 4 sutures without complications, patient tolerated well. Will have him return in 7 to 10 days for suture removal and sooner if signs of infection Differential Diagnosis Differential Diagnosis: Laceration, abrasion Imaging Data Radiologic Study: Attestation: I personally reviewed and interpreted this imaging study as natty haywood: Imaging: X-Ray Radiologist's impression: No acute findings Lab Data Lab results reviewed: Yes I reviewed the patient's lab results. Quality:SDOH Health Related Social Needs: No Data to Display PFSH All Active Problems (Updated 02/29/24 @ 18:25 by Hipolito Ford MD) Laceration of left little finger (Acute) Trauma (Acute) Chest wall contusion (Acute) Multiple transverse process fractures (Acute) Contusion of hip (Acute) Back contusion (Acute) Prostatitis (Acute) Chronic atrial fibrillation (Chronic) Acute pyelonephritis (Acute) Prostate enlargement (Chronic) Medical History Atrial fibrillation Renal stones Social History Smoking/Tobacco Use Status: Former Tobacco Use Smoking risk assessment performed?: Yes Alcohol Intake: current Alcohol Intake frequency: 0-2 drinks per day Drug use: Never Substance use type: does not use Housing: house Do you feel safe at home: Yes Do you feel safe in your relationship?: Yes
== END 2024-02-29 18:36 | disposition home or self-care (01) ==
PROVIDERS: Emergency Provider Emergency Medicine; PCP Family Medicine
DX: S61.217A Laceration without foreign body of left little finger without damage to nail, initial encounter (principal); I48.20 Chronic atrial fibrillation, unspecified; Z23 Encounter for immunization; Z79.82 Long term (current) use of aspirin; W26.8XXA Contact with other sharp object(s), not elsewhere classified, initial encounter; Y93.K9 Activity, other involving animal care; Y92.71 Barn as the place of occurrence of the external cause
CPT/HCPCS: 12001; 90471; 90715; 99283; 73140

== ENCOUNTER 2025-03-22 10:49 | Emergency (ER) | payer MEDICARE, SELFPAY ==
--- NOTE | 2025-03-22 10:45 | DI.US_ITS ---
Exam(s) US LOWER EXTREMITY VENOUS RT EXAM: US LOWER EXTREMITY VENOUS RT CLINICAL HISTORY: calf pain. TECHNIQUE: Lower extremity venous ultrasound performed using grayscale, color- flow, and spectral Doppler analysis. COMPARISON: No exams were available for comparison FINDINGS: The common femoral, femoral and popliteal veins demonstrate normal compressibility, augmentation, and color Doppler. The posterior tibial and peroneal veins are patent. No saphenous vein thrombosis. There is a thrombosed intermuscular vein the upper posterior calf. This corresponds to the area of patient's pain. It measures 3.3 cm in length. No hematoma or Thornton's cyst is seen. IMPRESSION: Area of patient's pain correspond to a thrombosed intra muscular vein in the posterior upper calf. No additional thrombi. DATA REPOSITORY:
[2025-03-22 10:52] VITALS: BP 145/70; PULSE 63; RESP 18; TEMP 36.4; O2SAT 97
[2025-03-22 11:06] VITALS: BP 145/70; PULSE 63; RESP 18; TEMP 36.4; O2SAT 97
--- NOTE | 2025-03-22 11:20 | W.ED.GENAD ---
Discharge Plan Disposition Patient Disposition: Home Condition: Stable Discharge Details Clinical Impression: Superficial thrombophlebitis of right leg Primary Care Provider: Matt Soler ED Provider: Trever Kaiser Home Meds and New Rx's Prescriptions: New rivaroxaban 10 mg tablet 10 mg PO DAILY 45 Days Qty: 45 0RF Continued VITAMIN B-12 1,000 MCG/ML VIAL 1 ml IM QMO. 90 Days multivitamin Tablet 1 tab PO QAM diltiazem HCl 120 mg Capsule,Extended Release 12 Hr 120 mg PO BID aspirin 81 mg Tablet 81 mg PO QPM metoprolol succinate 50 mg Tablet Extended Release 24 Hr 100 mg PO DAILY primidone 250 mg Tablet 250 mg PO BID metoprolol succinate 25 mg Tablet Extended Release 24 Hr 100 mg PO DAILY Rx Instructions: take with a 50mg tablet for total dose of 75mg daily. lisinopril 40 mg Tablet 40 mg PO DAILY tamsulosin 0.4 mg capsule 0.4 mg PO QHS Qty: 30 1RF hydrochlorothiazide 25 mg tablet 25 mg PO DAILY Patient Comments: TAKE ONE TABLET BY MOUTH EVERY DAY lidocaine [Lidoderm] 5 % adhesive patch,medicated 1 patch topical DAILY Qty: 15 0RF Rx Instructions: leave on most painful area for up to 12 hrs Discharge Instructions Instructions: Rivaroxaban, Superficial vein phlebitis and thrombosis Additional Instructions: You were seen in the emergency department for the superficial blood clot of an intramuscular vein of your proximal right calf. The clot is 3.3 cm making it fairly large, it is not in the deep system of veins and less likely to travel but still warrants low-dose blood thinner for 45 days with follow-up ultrasounds ordered by your PCP to ensure that there is no propagation of clotting. Please be aware that starting a blood thinner is not without risks including GI bleeding and the need for CT scans for intracranial bleeding with any trauma to the head whatsoever. Please return to the emergency department for any emergent concerns, compression stockings may help with symptomatic relief throughout the day as well. Referrals: Matt Soler [Primary Care Provider, Medicine] Discharge Data Discharge Date/Time-TO BE ENTERED AT DEPARTURE: 03/22/25 12:50 HPI General Date/Time Provider Initiated Documentation: 03/22/25 10:58. HPI Narrative: 84 year-old male presents to ED today by POV/ambulating with a chief complaint of R calf pain, suspects clot, sent over per PCP for U/S with onset noted for a week or two. Quality described as nodular painful area in R calf muscle, no overt unilateral leg swelling, gross skin changes, no radiation to numbness/tingling, medial thigh pain, open lesions, trauma. Severity is described as moderate. Palliating factors include nothing specific attempted. Provoking factors include nothing specific. Events leading up to the incident/Associated Symptoms: Patient has been on blood thinners in the past for atrial fibrillation. Patient not anticoagulated. Related Data Home Medications ?Medication ?Instructions ?Recorded ?Confirmed Vitamin B-12 1 ml IM QMO. 90 days 09/27/08 03/22/25 aspirin 81 mg tablet 81 mg PO QPM 04/26/21 03/22/25 diltiazem HCl 120 mg 120 mg PO BID 04/26/21 03/22/25 capsule,extended release 12 hr lisinopril 40 mg tablet 40 mg PO DAILY 04/26/21 03/22/25 metoprolol succinate 25 mg 100 mg PO DAILY 04/26/21 03/22/25 tablet,extended release 24 hr metoprolol succinate 50 mg 100 mg PO DAILY 04/26/21 03/22/25 tablet,extended release 24 hr multivitamin 1 tab PO QAM 04/26/21 03/22/25 primidone 250 mg tablet 250 mg PO BID 04/26/21 03/22/25 tamsulosin 0.4 mg capsule 0.4 mg PO QHS #30 caps 04/28/21 03/22/25 hydrochlorothiazide 25 mg tablet 25 mg PO DAILY 11/27/23 03/22/25 lidocaine 5 % topical patch 1 patch topical DAILY #15 ea 11/27/23 03/22/25 (Lidoderm) rivaroxaban 10 mg tablet 10 mg PO DAILY 45 days #45 tabs 03/22/25 Previous Rx's ?Medication ?Instructions ?Recorded tamsulosin 0.4 mg capsule 0.4 mg PO QHS #30 caps 04/28/21 lidocaine 5 % topical patch 1 patch topical DAILY #15 ea 11/27/23 (Lidoderm) rivaroxaban 10 mg tablet 10 mg PO DAILY 45 days #45 tabs 03/22/25 Allergies Allergy/AdvReac Type Severity Reaction Status Date / Time No Known Allergies Allergy Unverified 03/22/25 10:56 General Stated Complaint: GenMedical VITA: 3 Review of Systems All systems reviewed & are unremarkable except as noted in HPI and below Exam Narrative Exam Narrative: GENERAL APPEARANCE: Well-nourished, non-toxic, awake and alert, atraumatic, no acute distress. SKIN: Warm, pink, dry, intact, without rashes/lesions/ulcerations. HEAD: Normocephalic, atraumatic, normal hair distribution for gender/age. EYES: Normal conjunctiva, no exudates on lids/lashes. ENT: Nares patent, no circumoral cyanosis, no facial swelling NECK: Supple, trachea midline, painless cervical ROM. LUNGS/CHEST: Non-labored respirations, normal A/P diameter, symmetrical expansion, no chest wall deformity HEART (CV/PV): No peripheral edema, no JVD. ABDOMEN: Soft, non-distended, no guarding. MSK: Normal ROM, no swelling/deformity to bilateral UEs or LEs, moving all extremities without weakness, no cyanosis, spine midline without tenderness, normal curvature, focal nodular swelling within the gastrocnemius of the right leg, no focal unilateral leg swelling, no medial thigh tenderness, Homans negative, neurovascular intact distal NEURO: Mental Status AAOx4 - alert to person, place, time, events No facial droop, no forehead involvement. Motor: No focal weakness - strength 5/5 in bilateral UEs and LEs, proximal and distal, symmetric. Sensory: sensation intact to light touch globally. Gait normal: patient ambulated without ataxia into ED room. PSYCH: euthymic, cooperative, pleasant, appropriate speech Course Vital Signs Vital signs: Vital Signs Temperature 36.4 C 03/22/25 10:52 Pulse 63 03/22/25 10:52 Respiratory Rate 18 03/22/25 10:52 Blood Pressure 145/70 H 03/22/25 10:52 Pulse Oximetry 97 03/22/25 10:52 Temperature 36.4 C 03/22/25 11:06 Temperature Source Oral 03/22/25 11:06 Pulse 63 03/22/25 11:06 Respiratory Rate 18 03/22/25 11:06 Respiratory Effort Normal 03/22/25 11:07 Respiratory Depth Normal 03/22/25 11:07 Respiratory Pattern Normal 03/22/25 11:07 Blood Pressure 145/70 H 03/22/25 11:06 Pulse Oximetry 97 03/22/25 11:06 Oxygen Delivery Method Room Air 03/22/25 11:06 Oxygen Flow Rate 0 03/22/25 11:06 Pain Level 5 03/22/25 11:06 Medical Decision Making This dictation utilizes [id number] dictation software and may contain unedited grammatical errors. 84 year-old male presents to ED today by POV/ambulating with a chief complaint of R calf pain, suspects clot, sent over per PCP for U/S with onset noted for a week or two. Quality described as nodular painful area in R calf muscle, no overt unilateral leg swelling, gross skin changes, no radiation to numbness/tingling, medial thigh pain, open lesions, trauma. Severity is described as moderate. Palliating factors include nothing specific attempted. Provoking factors include nothing specific. Events leading up to the incident/Associated Symptoms: Patient has been on blood thinners in the past for atrial fibrillation. Patients' medical history: Atrial fibrillation. Family and social history: Stays active, exercises regularly, eats well. Pertinent exam findings / vital signs include focal nodular swelling within the gastrocnemius of the right leg, no focal unilateral leg swelling, no medial thigh tenderness, Homans negative, neurovascular intact distal. Differential / pathologies of concern include DVT, superficial thrombophlebitis, muscle strain or sprain. Diagnostic studies of: - Ultrasound of the right lower extremity-shows an intramuscular clot in the proximal posterior calf that is 3.3 cm close to the popliteal. Interventions of: - Started on low-dose 45-day rivaroxaban per up-to-date guidelines check for moderate risk superficial clot. ED Course/Assessment/Plan: 84-year-old male presents with right calf pain, saw his primary care provider who is suspicious for clot pathology, is a 3.3 cm clot in the proximal portion of his calf and an intramuscular vein that is fairly near to the popliteal, due to this I am starting him on 10 mg daily for 45 days of rivaroxaban, stressed strict return criteria for any trauma to the head, any uncontrolled bleeding, any significant increase in leg swelling, I do recommend that he get an outpatient ultrasound in the short-term for follow-up to make sure the clot is not propagating. Findings not consistent with deep vein thrombosis, neurovascular compromise, trauma. Disposition of superficial thrombophlebitis of right leg. Patient verbalized understanding of the plan and return to ED criteria and engaged in shared decision making. Medical Records Medical records reviewed: Yes I reviewed the patient's medical records. Imaging Data Radiologic Study: Attestation: I personally reviewed and interpreted this imaging study as follows: Imaging: Ultrasound Radiologist's impression: EXAM: US LOWER EXTREMITY VENOUS RT CLINICAL HISTORY: calf pain. TECHNIQUE: Lower extremity venous ultrasound performed using grayscale, color-flow, and spectral Doppler analysis. COMPARISON: No exams were available for comparison FINDINGS: The common femoral, femoral and popliteal veins demonstrate normal compressibility, augmentation, and color Doppler. The posterior tibial and peroneal veins are patent. No saphenous vein thrombosis. There is a thrombosed intermuscular vein the upper posterior calf. This corresponds to the area of patient's pain. It measures 3.3 cm in length. No hematoma or Thornton's cyst is seen. IMPRESSION: Area of patient's pain correspond to a thrombosed intra muscular vein in the posterior upper calf. No additional thrombi. PFSH All Active Problems (Updated 03/22/25 @ 12:39 by ANGELA Cash) Superficial thrombophlebitis of right leg (Acute) Trauma (Acute) Chest wall contusion (Acute) Multiple transverse process fractures (Acute) Contusion of hip (Acute) Back contusion (Acute) Prostatitis (Acute) Chronic atrial fibrillation (Chronic) Acute pyelonephritis (Acute) Prostate enlargement (Chronic) Medical History Atrial fibrillation Renal stones Social History Smoking/Tobacco Use Status: Former Tobacco Use Smoking risk assessment performed?: Yes Alcohol Intake: current Alcohol Intake frequency: 0-2 drinks per day Drug use: Never Substance use type: does not use Housing: house Do you feel safe at home: Yes Do you feel safe in your relationship?: Yes
== END 2025-03-22 12:50 | disposition home or self-care (01) ==
PROVIDERS: Emergency Provider Physician Assistant; PCP Family Medicine
DX: I82.461 Acute embolism and thrombosis of right calf muscular vein (principal); I48.91 Unspecified atrial fibrillation; Z79.82 Long term (current) use of aspirin; Z87.891 Personal history of nicotine dependence
CPT/HCPCS: 99284; 93971; 99283

== ENCOUNTER 2025-03-30 19:17 | Emergency (ER) | payer MEDICARE, SELFPAY ==
[2025-03-30 19:20] VITALS: BP 112/94; PULSE 64; RESP 18; TEMP 36.3; O2SAT 97
[2025-03-30 19:36] VITALS: PULSE 63; PULSE 64; O2SAT 96
[2025-03-30 19:40] VITALS: RESP 13
--- NOTE | 2025-03-30 19:45 | W.ED.GENAD ---
Discharge Plan Disposition Patient Disposition: Home Condition: Good Discharge Details Clinical Impression: Superficial thrombophlebitis Primary Care Provider: Matt Soler ED Provider: Natasha Akhtar Home Meds and New Rx's Prescriptions: Continued VITAMIN B-12 1,000 MCG/ML VIAL 1 ml IM QMO. 90 Days multivitamin Tablet 1 tab PO QAM diltiazem HCl 120 mg Capsule,Extended Release 12 Hr 120 mg PO BID aspirin 81 mg Tablet 81 mg PO QPM metoprolol succinate 50 mg Tablet Extended Release 24 Hr 100 mg PO DAILY primidone 250 mg Tablet 250 mg PO BID metoprolol succinate 25 mg Tablet Extended Release 24 Hr 100 mg PO DAILY Rx Instructions: take with a 50mg tablet for total dose of 75mg daily. lisinopril 40 mg Tablet 40 mg PO DAILY tamsulosin 0.4 mg capsule 0.4 mg PO QHS Qty: 30 1RF hydrochlorothiazide 25 mg tablet 25 mg PO DAILY Patient Comments: TAKE ONE TABLET BY MOUTH EVERY DAY rivaroxaban 10 mg tablet 10 mg PO DAILY 45 Days Qty: 45 0RF Discontinued lidocaine [Lidoderm] 5 % adhesive patch,medicated 1 patch topical DAILY Qty: 15 0RF Rx Instructions: leave on most painful area for up to 12 hrs Discharge Instructions Instructions: Superficial vein phlebitis and thrombosis Additional Instructions: You will need to return tomorrow for an ultrasound. Please call [facility] tomorrow at 8am- their number is [phone]. After you have your ultrasound please come to the ED to be seen and discuss the results. Return to the emergency department immediately for new or worsening symptoms including chest pain, difficulty breathing, severe uncontrolled pain, increase in swelling, feeling like you are going to pass out, or if you have any other concerns. Discharge Orders Other Ambulatory Orders: US lower extremity venous RT (Routine) Timeframe: 1 Day Facility: [facility] - Location: DIAGNOSTIC IMAGING Ordered By: Natasha Akhtar [facility] General Mode of arrival: ambulatory. Date/Time Provider Initiated Documentation: 03/30/25 19:20. Limitations to Documentation: no limitations. Information obtained by: patient and old records reviewed. HPI Narrative: 84yo M with hx afib, recently diagnosed superficial thrombophlebitis of right leg, presenting with worsening right leg pain. This afternoon he began to note increasing pain in his posterior right knee where the clot is; he has had pain in this area prior but it usually goes away after a few minutes and this evening is more constant and worse with walking. He is concerned that his clot is worsening. Is taking his blood thinner as prescribed. Has not yet seen his PCP to followup on his ED visit. No increasing swelling or color changes to his RLE. No numbness, tingling, or weakness. No chest pain, shortrness of breath, palptitations, or lightheadedness. He is otherwise in his usual state of health. Related Data Home Medications ?Medication ?Instructions ?Recorded ?Confirmed Vitamin B-12 1 ml IM QMO. 90 days 09/27/08 03/30/25 aspirin 81 mg tablet 81 mg PO QPM 04/26/21 03/30/25 diltiazem HCl 120 mg 120 mg PO BID 04/26/21 03/30/25 capsule,extended release 12 hr lisinopril 40 mg tablet 40 mg PO DAILY 04/26/21 03/30/25 metoprolol succinate 25 mg 100 mg PO DAILY 04/26/21 03/22/25 tablet,extended release 24 hr metoprolol succinate 50 mg 100 mg PO DAILY 04/26/21 03/30/25 tablet,extended release 24 hr multivitamin 1 tab PO QAM 04/26/21 03/30/25 primidone 250 mg tablet 250 mg PO BID 04/26/21 03/30/25 tamsulosin 0.4 mg capsule 0.4 mg PO QHS #30 caps 04/28/21 03/30/25 hydrochlorothiazide 25 mg tablet 25 mg PO DAILY 11/27/23 03/30/25 rivaroxaban 10 mg tablet 10 mg PO DAILY 45 days #45 tabs 03/22/25 03/30/25 Previous Rx's ?Medication ?Instructions ?Recorded tamsulosin 0.4 mg capsule 0.4 mg PO QHS #30 caps 04/28/21 rivaroxaban 10 mg tablet 10 mg PO DAILY 45 days #45 tabs 03/22/25 Allergies Allergy/AdvReac Type Severity Reaction Status Date / Time No Known Allergies Allergy Unverified 03/30/25 19:29 General Stated Complaint: Vascular VITA: 3 Review of Systems Narrative: see HPI Exam Narrative Exam Narrative: General: Alert, well appearing, well nourished, in no acute distress. Head: Normocephalic, atraumatic Neck: Trachea midline, ?Neck supple. Cardiac: ?RRR, no murmurs appreciated Resp: No respiratory distress. CTAB. Abd: ?Non-distended Extremities: ?No deformities.? No peripheral edema. RLE with focal tender swelling to proximal calf just below knee. Remainder of thigh and leg nontender, all compartments soft, no diffuse swelling, symmetric with LLE. No overlying color changes. DP pulses intact and symmetric. Sensation to light touch intact and symmetric throughout BLE. Neurologic: GCS 15. ? Moves all extremities freely against gravity Course Vital Signs Vital signs: Vital Signs Temperature 36.3 C L 03/30/25 19:20 Pulse 64 03/30/25 19:20 Respiratory Rate 18 03/30/25 19:20 Blood Pressure 112/94 H 03/30/25 19:20 Pulse Oximetry 97 03/30/25 19:20 Temperature 36.3 C L 03/30/25 19:20 Temperature Source Oral 03/30/25 19:20 Pulse 64 03/30/25 19:20 Respiratory Rate 18 03/30/25 19:20 Blood Pressure 112/94 H 03/30/25 19:20 Blood Pressure Position Sitting 03/30/25 19:20 Pulse Oximetry 97 03/30/25 19:20 Oxygen Delivery Method Room Air 03/30/25 19:20 Oxygen Flow Rate 0 03/30/25 19:20 Pain Level 8 03/30/25 19:20 Medical Decision Making 84yo M with hx afib, recently diagnosed superficial thrombophlebitis of right leg, presenting with worsening right leg pain. ED visit note/labs/imaging from 03/22/25 reviewed; at that time US showed a thrombosed intramuscular vein in the posterior upper calf, 3.3cm, with no other thrombi. He was discharged on 45 days of low-dose rivoraxaban and advised to followup with PCP for repeat ultrasound to evaluate for clot propagation. He reports he has been taking his blood thinner as prescribed. This afternoon noted increasing pain in the same area, worse with ambulation. No other changes; no increased swelling, skin changes, chest pain, shortness of breath, palpitations, or lightheadedness. No signs or symptoms to suggest pulmonary embolism. Symptoms ARE concerning for worsening clot and warrant repeat US to further evaluate however regrettably not available overnight. Will order ambulatory US for tomorrow; if clot growing or if DVT present would switch to full dose AC. No indication for EKG, CT or labs at this time. Discussed risks/benefits of increasing dose of AC now while awaiting results of US; given plan for US tomorrow patient prefers to continue current dose which is reasonable. He was instructed to continue all his current medications and to call DI at 8am tomorrow to schedule his US and he was instructed to present to the ED following the US. Discharged home; discharge instructions and return precautions were reviewed with patient who verbalized understanding. All questions were answered and he is in full agreement with the plan. Medical Records Medical records reviewed: Yes I reviewed the patient's medical records. [facility] All Active Problems (Updated 03/30/25 @ 19:46 by Natasha Akhtar MD) Superficial thrombophlebitis (Acute) Superficial thrombophlebitis of right leg (Acute) Trauma (Acute) Chest wall contusion (Acute) Multiple transverse process fractures (Acute) Contusion of hip (Acute) Back contusion (Acute) Prostatitis (Acute) Chronic atrial fibrillation (Chronic) Acute pyelonephritis (Acute) Prostate enlargement (Chronic) Medical History Atrial fibrillation Renal stones Social History Smoking/Tobacco Use Status: Former Tobacco Use Smoking risk assessment performed?: Yes Alcohol Intake: current Alcohol Intake frequency: 0-2 drinks per day Alcohol type: hard liquor Drug use: Never Substance use type: does not use Housing: house Do you feel safe at home: Yes Do you feel safe in your relationship?: Yes
[2025-03-30 19:50] VITALS: PULSE 66
[2025-03-30 20:19] VITALS: RESP 18; O2SAT 97
[2025-03-30 20:22] VITALS: RESP 20
== END 2025-03-30 20:30 | disposition home or self-care (01) ==
PROVIDERS: Emergency Provider Student in an Organized Health Care Education/Training Program; PCP Family Medicine
DX: I80.01 Phlebitis and thrombophlebitis of superficial vessels of right lower extremity (principal); M79.604 Pain in right leg; Z79.01 Long term (current) use of anticoagulants
CPT/HCPCS: 99283; 99282

== ENCOUNTER 2025-03-31 08:58 | Outpatient (CLI) | payer MEDICARE, SELFPAY ==
--- NOTE | 2025-03-31 08:15 | DI.US_ITS ---
Exam(s) US LOWER EXTREMITY VENOUS RT EXAM: US LOWER EXTREMITY VENOUS RT CLINICAL HISTORY: known superficial thrombus rt leg, worsening pain, I80.01 TECHNIQUE: Grayscale, color, and doppler imaging of the deep venous system of the lower extremity was performed. COMPARISON: US US LOWER EXTREMITY VENOUS RT from 03/22/2025 FINDINGS: There is no evidence of intraluminal thrombus and there is normal compression and augmentation demonstrated within the common femoral vein, femoral vein, and popliteal vein. However, in the calf there is thrombosis of one of the intramuscular veins in the gastrocnemius soleus group with approximately 3.8 cm clot length. The remainder of the calf veins are patent. Incidentally noted is a Thornton cyst in the popliteal fossa measuring 2 x 1.5 cm. IMPRESSION: 1. There is a thrombose intramuscular deep vein in the upper calf gastro cine medius group with clot length measuring 3.8 cm. Should be treated as a DVT.. ER notified. Patient has been put on anticoagulants DATA REPOSITORY:
== END 2025-03-31 09:18 ==
LOC: DI 08:58
PROVIDERS: PCP Family Medicine; Visit Provider Student in an Organized Health Care Education/Training Program
DX: I80.01 Phlebitis and thrombophlebitis of superficial vessels of right lower extremity (principal)
CPT/HCPCS: 99283; 93971

== ENCOUNTER 2025-03-31 10:14 | Emergency (ER) | payer MEDICARE, SELFPAY ==
[2025-03-31 10:18] VITALS: BP 123/67; PULSE 65; RESP 16; TEMP 36.5; O2SAT 97
--- NOTE | 2025-03-31 10:45 | W.ED.GENAD ---
Discharge Plan Disposition Patient Disposition: Home Discharge Details Clinical Impression: Acute deep vein thrombosis (DVT) of calf muscle vein Primary Care Provider: Matt Soler ED Provider: Bijan Brooks Home Meds and New Rx's Prescriptions: New rivaroxaban 15 mg tablet 15 mg PO BID Qty: 42 0RF Rx Instructions: must administer with food. Continued VITAMIN B-12 1,000 MCG/ML VIAL 1 ml IM QMO. 90 Days multivitamin Tablet 1 tab PO QAM diltiazem HCl 120 mg Capsule,Extended Release 12 Hr 120 mg PO BID aspirin 81 mg Tablet 81 mg PO QPM metoprolol succinate 50 mg Tablet Extended Release 24 Hr 100 mg PO DAILY primidone 250 mg Tablet 250 mg PO BID metoprolol succinate 25 mg Tablet Extended Release 24 Hr 100 mg PO DAILY Rx Instructions: take with a 50mg tablet for total dose of 75mg daily. lisinopril 40 mg Tablet 40 mg PO DAILY tamsulosin 0.4 mg capsule 0.4 mg PO QHS Qty: 30 1RF hydrochlorothiazide 25 mg tablet 25 mg PO DAILY Patient Comments: TAKE ONE TABLET BY MOUTH EVERY DAY Discontinued rivaroxaban 10 mg tablet 10 mg PO DAILY 45 Days Qty: 45 0RF Discharge Instructions Instructions: Bleeding Precautions, Deep Vein Thrombosis (DVT) ED Additional Instructions: Based on your ultrasound performed today it appears that the blood clot in your leg has slightly enlarged as compared to your initial scan. Given that you are also having worsening symptoms, it is reasonable that we increase your blood thinner dosage to a therapeutic rather than prophylactic level. With this increase comes increased risk of side effects most notably uncontrollable bleeding. Please be sure to seek evaluation emergency department for any significant head trauma such as a fall to the ground, or if you develop rectal bleeding, or dark tarry stools, which could be a sign that you have ongoing internal bleeding. Further, it is important to remember that the blood clot can progress to a clot that enters the lungs, so should you develop shortness of breath, chest pain or if you pass out, please return emergently for evaluation. Following your initial 3 weeks of therapy on anticoagulant, please ensure that you have a follow-up appointment with your doctor to determine the appropriate follow up dosing for your rivaroxaban, as well as to have a repeat ultrasound performed in order to determine that the clot has resolved. HPI General Date/Time Provider Initiated Documentation: 03/31/25 10:21. HPI Narrative: 84-year-old male with past medical history of A-fib status post Watchman procedure, was diagnosed 9 days ago with a right intramuscular calf Vein thrombosis, presents for evaluation of worsening right leg pain. He notes that he was initially evaluated by his PCP approximately 9 days ago for right upper calf pain which was atraumatic. Ultrasound the time found the aforementioned thrombosis, and patient at that time was started on low-dose rivaroxaban 10 mg daily. Yesterday patient notes that the pain suddenly became severe, and he was unable to ambulate due to the significant increase in pain prompting evaluation in the ER last night. Patient was deemed stable for discharge as she had no hemodynamic instability or complaints suggestive of PE, with plan for representation this morning when ultrasound services are available to perform repeat DVT scan. Patient obtained his repeat scan this morning as an outpatient, now presents for further evaluation. He denies any shortness of breath, chest pain, syncope, hemoptysis or any other new or concerning symptoms. He notes that he has been taking the rivaroxaban as prescribed. Related Data Home Medications ?Medication ?Instructions ?Recorded ?Confirmed Vitamin B-12 1 ml IM QMO. 90 days 09/27/08 03/31/25 aspirin 81 mg tablet 81 mg PO QPM 04/26/21 03/31/25 diltiazem HCl 120 mg 120 mg PO BID 04/26/21 03/31/25 capsule,extended release 12 hr lisinopril 40 mg tablet 40 mg PO DAILY 04/26/21 03/31/25 metoprolol succinate 25 mg 100 mg PO DAILY 04/26/21 03/31/25 tablet,extended release 24 hr metoprolol succinate 50 mg 100 mg PO DAILY 04/26/21 03/31/25 tablet,extended release 24 hr multivitamin 1 tab PO QAM 04/26/21 03/31/25 primidone 250 mg tablet 250 mg PO BID 04/26/21 03/31/25 tamsulosin 0.4 mg capsule 0.4 mg PO QHS #30 caps 04/28/21 03/31/25 hydrochlorothiazide 25 mg tablet 25 mg PO DAILY 11/27/23 03/31/25 rivaroxaban 15 mg tablet 15 mg PO BID Initial therapy for 03/31/25 DVT #42 tabs Previous Rx's ?Medication ?Instructions ?Recorded tamsulosin 0.4 mg capsule 0.4 mg PO QHS #30 caps 04/28/21 rivaroxaban 15 mg tablet 15 mg PO BID Initial therapy for 03/31/25 DVT #42 tabs Allergies Allergy/AdvReac Type Severity Reaction Status Date / Time No Known Allergies Allergy Unverified 03/31/25 10:21 General Stated Complaint: Recheck VITA: 4 Exam Narrative Exam Narrative: Gen: A&O NAD HEENT: NCAT, EOMI, not icteric. External ears normal. No rhinorrhea. Moist mucous membranes. Neck: Supple, full range of motion, no observable masses, No meningeal sign. Lungs: No Respiratory distress. CV: RRR, no edema. Abdomen: Soft, nondistended, No rebound tenderness. MSK: No joint swelling, no redness. Tenderness to palpation to the proximal medial aspect of the right calf. DP pulses are 2+ bilaterally. Skin: No rashes, petechiae, lesions. Normal color per patient. Neuro: Normal Gait, Grossly intact. Psych: Appropriate for situation. Course Vital Signs Vital signs: Vital Signs Temperature 36.5 C 03/31/25 10:18 Pulse 65 03/31/25 10:18 Respiratory Rate 16 03/31/25 10:18 Blood Pressure 123/67 03/31/25 10:18 Pulse Oximetry 97 03/31/25 10:18 Temperature 36.5 C 03/31/25 10:18 Pulse 65 03/31/25 10:18 Respiratory Rate 16 03/31/25 10:18 Blood Pressure 123/67 03/31/25 10:18 Pulse Oximetry 97 03/31/25 10:18 Medical Decision Making Medical Records Medical records narrative: 84-year-old male presents as above. Patient's presentation is concerning for advancement of clot burden, although history and exam do not suggest any evidence of acute PE. Given the patient's significant increase in pain, with impact to his mobility, which in itself is a risk factor for further clot propagation, will increase anticoagulation to therapeutic levels of 15 mg twice daily for 21 days, given the patient's HAS-BLED score is only 1, making him low risk for complications. Will recommend follow-up with PCP to determine ongoing anticoagulation plan after the initial 21 days of therapy, with plan for another repeat ultrasound to ensure improvement of clot burden or resolution. Imaging Data Radiologic Study: My impression: As compared to previous study dated 03/22/25, there is increasing clot burden in the previously identified intramuscular thrombosis from 3.3 cm to 3.8 cm on the outpatient DVT scan performed earlier this morning. PFSH All Active Problems (Updated 03/31/25 @ 10:47 by Bijan Brooks MD) Acute deep vein thrombosis (DVT) of calf muscle vein (Acute) Superficial thrombophlebitis (Acute) Superficial thrombophlebitis of right leg (Acute) Trauma (Acute) Chest wall contusion (Acute) Multiple transverse process fractures (Acute) Contusion of hip (Acute) Back contusion (Acute) Prostatitis (Acute) Chronic atrial fibrillation (Chronic) Acute pyelonephritis (Acute) Prostate enlargement (Chronic) Medical History Atrial fibrillation Renal stones Social History Smoking/Tobacco Use Status: Former Tobacco Use Smoking risk assessment performed?: Yes Alcohol Intake: current Alcohol Intake frequency: 0-2 drinks per day Alcohol type: hard liquor Drug use: Never Substance use type: does not use Housing: house Do you feel safe at home: Yes Do you feel safe in your relationship?: Yes PAWSS Have you Been Recently Intoxicated or Drunk Within the Last 30 days?: No Have you Ever Experienced Previous Episodes of Alcohol Withdrawal?: No Have you ever Experienced Withdrawal Seizures?: No Have you ever Experienced Delirium Tremens(DT)s?: No Have you ever undergone Alcohol Rehabilitation Treatment (i.e, inpt ot outpatient treatment programs)?: No Have you ever Experienced Blackouts?: No Have you ever Combined Alcohol with other Downers within the last 90 days?: No Have you ever Combined Alcohol with any other Substance of Abuse during the last 90 days?: No Positive Blood Alcohol level on Presentation? [PCS.BAL]: No Evidence of Increased Autonomic Activity (i.e. HR>120, tremor, sweating, agitation, nausea)?: No Result: 0
[2025-03-31 11:37] VITALS: BP 122/71; PULSE 58; RESP 16; O2SAT 99
== END 2025-03-31 11:37 | disposition home or self-care (01) ==
PROVIDERS: Emergency Provider General Practice; PCP Family Medicine
DX: I82.461 Acute embolism and thrombosis of right calf muscular vein (principal); M79.604 Pain in right leg; Z79.01 Long term (current) use of anticoagulants
CPT/HCPCS: 99283 ×2

== ENCOUNTER 2025-04-27 09:49 | Outpatient (CLI) | payer MEDICARE, SELFPAY ==
--- NOTE | 2025-04-27 14:50 | DI.US_ITS ---
Exam(s) US LOWER EXTREMITY VENOUS RT EXAM: US LOWER EXTREMITY VENOUS RT CLINICAL HISTORY: PHLEBITIS THROMBOPHLEBITIS RT LOWER EXTREMITY I80.01 TECHNIQUE: Right lower extremity venous ultrasound performed using grayscale, color-flow, and spectral Doppler analysis. COMPARISON: US US LOWER EXTREMITY VENOUS RT from 03/31/2025 FINDINGS: The right common femoral, femoral and popliteal veins demonstrate normal compressibility, augmentation, and color Doppler. The posterior tibial and peroneal veins are patent. The saphenofemoral junction is unremarkable. The thrombus in the vein in the calf has resolved. There is no evidence of a Thornton cyst. The soft tissues are unremarkable. IMPRESSION: 1. No evidence of a right lower extremity DVT. 2. Resolution of the thrombus in the right calf. DATA REPOSITORY:
== END 2025-04-27 10:09 ==
LOC: DI 09:49
PROVIDERS: PCP Family Medicine; Visit Provider Family Medicine
DX: I80.01 Phlebitis and thrombophlebitis of superficial vessels of right lower extremity (principal)
CPT/HCPCS: 93971

== ENCOUNTER 2025-05-05 08:10 | Emergency (ER) | payer MEDICARE, SELFPAY ==
[2025-05-05 08:16] VITALS: BP 157/69; PULSE 60; RESP 12; TEMP 36.9; O2SAT 98
--- NOTE | 2025-05-05 08:21 | W.ED.GENAD ---
Discharge Plan Disposition Patient Disposition: Home Condition: Good Discharge Details Clinical Impression: Osteoarthritis, Joint pain, Joint effusion Primary Care Provider: Matt Soler ED Provider: Hallie Watson Home Meds and New Rx's Prescriptions: New prednisone 5 mg tablet 5 mg PO DIRECTED Qty: 30 0RF Rx Instructions: two tablets (10mg) once a day for 10 days then one tablet (5mg) for 10 days Continued VITAMIN B-12 1,000 MCG/ML VIAL 1 ml IM QMO. 90 Days multivitamin Tablet 1 tab PO QAM diltiazem HCl 120 mg Capsule,Extended Release 12 Hr 120 mg PO BID aspirin 81 mg Tablet 81 mg PO QPM metoprolol succinate 50 mg Tablet Extended Release 24 Hr 100 mg PO DAILY primidone 250 mg Tablet 250 mg PO BID metoprolol succinate 25 mg Tablet Extended Release 24 Hr 100 mg PO DAILY Rx Instructions: take with a 50mg tablet for total dose of 75mg daily. lisinopril 40 mg Tablet 40 mg PO DAILY tamsulosin 0.4 mg capsule 0.4 mg PO QHS Qty: 30 1RF hydrochlorothiazide 25 mg tablet 25 mg PO DAILY Patient Comments: TAKE ONE TABLET BY MOUTH EVERY DAY Discharge Instructions Instructions: Osteoarthritis, Swollen Joints (DC) Additional Instructions: As we discussed, your exam is concerning for significant osteoarthritis which has become inflamed causing some swelling in the joints which has been limiting your range of motion. Please continue to encourage hydration. You may use Tylenol and ibuprofen as needed for discomfort. Please take as directed in the packaging. I have also prescribed you a low-dose prednisone taper for the next 20 days. Please take as directed on the packaging. I have also asked our care management team to assist in establishing with a local primary care provider. You should hear from them today or Thursday to schedule follow-up appointment in the next 1 to 2 weeks. If you develop any fever/chills, increased pain or other new/worsening symptom please seek care urgently once again. Please continue to encourage range of motion and work on getting some of your range of motion back as we discussed and please try to reduce the amount of repetitive movements that you are doing as this can cause increase in your discomfort. Please see your physical therapist as we discussed. HPI General Date/Time Provider Initiated Documentation: 05/05/25 08:17. Limitations to Documentation: no limitations. Information obtained by: patient, family () and RN notes reviewed. History of Present Illness 84 year old M presents to the emergency department with the chief complaint of bilateral upper extremity pain and stiffness, described as moderate, Quality is described as aching, sharp (with movement) and other (stiffness), and is localized to the left, right and upper extremity. Patient started experiencing this month(s) and it has been constant. Movement improves symptom(s), (better in the afternoon) Rest worsens symptoms (worse in tara morning and after being sedentary) . Patient notes no other symptoms.. Patient did receive the following treatments prior to arrival, none Related Data Home Medications ?Medication ?Instructions ?Recorded ?Confirmed Vitamin B-12 1 ml IM QMO. 90 days 09/27/08 05/05/25 aspirin 81 mg tablet 81 mg PO QPM 04/26/21 05/05/25 diltiazem HCl 120 mg 120 mg PO BID 04/26/21 05/05/25 capsule,extended release 12 hr lisinopril 40 mg tablet 40 mg PO DAILY 04/26/21 05/05/25 metoprolol succinate 25 mg 100 mg PO DAILY 04/26/21 05/05/25 tablet,extended release 24 hr metoprolol succinate 50 mg 100 mg PO DAILY 04/26/21 05/05/25 tablet,extended release 24 hr multivitamin 1 tab PO QAM 04/26/21 05/05/25 primidone 250 mg tablet 250 mg PO BID 04/26/21 05/05/25 tamsulosin 0.4 mg capsule 0.4 mg PO QHS #30 caps 04/28/21 05/05/25 hydrochlorothiazide 25 mg tablet 25 mg PO DAILY 11/27/23 05/05/25 prednisone 5 mg tablet 5 mg PO DIRECTED #30 tabs 05/05/25 Previous Rx's ?Medication ?Instructions ?Recorded tamsulosin 0.4 mg capsule 0.4 mg PO QHS #30 caps 04/28/21 prednisone 5 mg tablet 5 mg PO DIRECTED #30 tabs 05/05/25 Allergies Allergy/AdvReac Type Severity Reaction Status Date / Time No Known Allergies Allergy Verified 05/05/25 08:19 General Stated Complaint: Orthopedic VITA: 4 Review of Systems Constitutional Constitutional: Reports as per HPI, Denies fever(s), Denies headache(s) and Denies weakness ENT Ears, Nose, Mouth, and Throat: Denies headache(s) Cardiovascular Cardiovascular: Reports as per HPI Respiratory Respiratory: Reports as per HPI and Denies cough Musculoskeletal Musculoskeletal: Reports as per HPI and Denies tingling Integumentary/Breasts Skin/Breast: Reports as per HPI, Denies rash and Denies wounds Neurologic Neurologic: Reports as per HPI, Denies headache(s), Denies tingling, Denies paresthesias and Denies weakness Exam Const General: cooperative, healthy appearing, comfortable, no acute distress, well developed and well groomed Nutritional Appearance: average body habitus and well nourished Orientation: alert and awake [facility] Head: normal to inspection Neck Neck: normal visual inspection (soft, 4cm non-erythematous, mobile circular mass), limited ROM (generally stiff), no lymphadenopathy, trachea midline, nontender and other (negative Spurlings) Resp Effort & Inspection: normal respiratory effort, able to speak in complete sentences and no respiratory distress Cardio Rate: regular rate Rhythm: regular rhythm Skin General skin exam: no rashes or lesions noted Lesions: no lesions Rashes: no rashes Trauma: no lacerations or abrasions Neuro General: patient alert and patient awake Cognition: normal cognition Gait: shuffling Motor: muscle tone normal throughout and tremor (BUE) Sensory Exam: no sensory deficits noted Extrem General: abnormal ROM (diffusely limited in BUE), capillary refill normal, no clubbing, cyanosis or edema and other (joint swelling at right shoulder, elbow, wrist and all fingers) Course Vital Signs Vital signs: Vital Signs Temperature 36.9 C 05/05/25 08:16 Pulse 60 05/05/25 08:16 Respiratory Rate 05/05/25 08:16 Blood Pressure 157/69 H 05/05/25 08:16 Pulse Oximetry 98 05/05/25 08:16 Temperature 36.9 C 05/05/25 08:16 Temperature Source Oral 05/05/25 08:16 Pulse 60 05/05/25 08:16 Respiratory Rate 12 05/05/25 08:16 Blood Pressure 157/69 H 05/05/25 08:16 Blood Pressure Position Sitting 05/05/25 08:16 Pulse Oximetry 98 05/05/25 08:16 Medical Decision Making Patient is a pleasant 85-year-old [id number] male, brought in by his , with past medical history significant for atrial fibrillation which was managed with a Watchman procedure and medication management, presenting today with chief complaint of worsening bilateral upper extremity pain. Pain is maximal in the right shoulder, right elbow and hand. He has noted swelling, stiffness and limited range of motion which is maximal in the morning. He reports that symptoms improved throughout the day, goes from having difficulty even holding a toothbrush in the morning, to being able to take care of his animals more in the afternoon. 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 Patient was recently seen by his primary care and they completed lab work to evaluate his thyroid as well as rheumatoid arthritis, these were both normal. They did also send Lyme testing which is still pending. On exam, patient appears nontoxic. He is hemodynamically stable. Of note, patient does have slightly tremulous voice and is slightly slow with his speech pattern as well as bilateral tremor and some slight shuffle to his gait. When I first noticed this, I did raise my concern for Parkinson's and his advised that about 15 years ago this had been a possible concern but primary care felt that it was more of an essential tremor than Parkinson's and has not been readdressed since then. He has negative Spurling's test. 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 Exam of the bilateral upper extremities reveals limited range of motion, particularly with forward elevation of the shoulders and extension of the elbows bilaterally with the right being more pronounced on the left. Pain primarily in the anterior aspect of the shoulder when he is trying to complete forward elevation. He has limited extension in the right upper extremity at the he is in the left. He also has pain with supination on the right which induces pain at the wrist. Bilateral hands struggled full flexion but extension is intact. He does have good strength but has difficulty getting to a full closed fist. Initial impression with the limited range of motion, the morning stiffness that subsides with movement, the appearance of the swollen joints, is osteoarthritis. With his symptoms being more in the hands and the elbows, and no involvement of the lower extremities, no recent suggest PMR at this point. He does not have any symptoms to suggest infectious etiology. His primary care did send Lyme testing so do not feel that this is needed to be repeated. X-ray reviewed by the radiologist as well as myself and patient does have diffuse osteoarthritis. Does have a joint effusion at the elbow as well as some suspicious areas in the hand. As the patient has not had any acute trauma, no indication to suggest fracture. I did touch base with orthopedics as well who reviewed the images and feel that the findings and history are more consistent with osteoarthritis and joint effusion associated with this. We then discussed treatment options for the patient given the acute on chronic nature of the discomfort and that it is now limiting his ADLs. I advised a low-dose taper of prednisone which was prescribed for the patient. I also discussed with the patient, and his , my concern for potential Parkinson's given the change in his speech, his shuffled gait and upper extremity tremor. Encouraged close follow-up with primary care and advised our care management team to ensure that he is able to get a prompt follow-up in the next 1 to 2 weeks with a local primary care as patient does not have somebody locally that he is able to see. Return precautions were discussed. We did discuss activities that he should avoid given the discomfort, particularly in the shoulder and elbow. He does have a physical therapist that he is able to work with, did not need referral for this. All of his questions and concerns were addressed and he is in agreement this plan. Dictation completed using [employer] dictation software. Please excuse any errors or office correspondent anomalies that may remain. PFSH All Active Problems (Updated 05/05/25 @ 10:25 by ANGELA Hebert) Joint effusion (Acute) Joint pain (Acute) Osteoarthritis (Chronic) Superficial thrombophlebitis of right leg (Acute) Trauma (Acute) Chest wall contusion (Acute) Multiple transverse process fractures (Acute) Contusion of hip (Acute) Back contusion (Acute) Prostatitis (Acute) Chronic atrial fibrillation (Chronic) Acute pyelonephritis (Acute) Prostate enlargement (Chronic) Medical History Atrial fibrillation Renal stones Social History Smoking/Tobacco Use Status: Former Tobacco Use Smoking risk assessment performed?: Yes Alcohol Intake: current Alcohol Intake frequency: 0-2 drinks per day Alcohol type: hard liquor Drug use: Never Substance use type: does not use Housing: house Do you feel safe at home: Yes Do you feel safe in your relationship?: Yes
--- NOTE | 2025-05-05 09:43 | DI.RAD_ITS ---
Exam(s) XR SHOULDER RT COMPLETE 2+V EXAM: XR SHOULDER RT COMPLETE 2+V CLINICAL HISTORY: stiff, pain anteriorly. TECHNIQUE: 2D digital imaging was performed. COMPARISON: No exams were available for comparison FINDINGS: Five views No evidence of fracture or dislocation or abnormal soft tissue calcification. There are significant osteoarthritic degenerative changes in the glenohumeral joint. There is moderate joint space narrowing and there is osteophyte on the inferior articular surface of the humeral head. There is moderate diminution of the subacromial space. No calcifications in the subacromial space. AC joint appears slightly widened. Clavicle unremarkable. IMPRESSION: Degenerative changes in the glenohumeral joint. No fractures evident. DATA REPOSITORY: RADIATION DOSE DELIVERED:
--- NOTE | 2025-05-05 09:43 | DI.RAD_ITS ---
Exam(s) XR WRIST RT COMPLETE EXAM: XR WRIST RT COMPLETE CLINICAL HISTORY: swelling, limited ROM. TECHNIQUE: 2D digital imaging was performed. COMPARISON: CR XR WRIST RT COMPLETE from 11/10/2022 FINDINGS: 3 views No evidence of acute fracture or dislocation nor significant ulnar variance. Scaphoid and scapholunate distance are normal. There are advanced degenerative changes at the 1st carpometacarpal joint incidentally noted. Calcification in the radial and ulnar arteries in the wrist is again noted. IMPRESSION: No acute osseous findings in the right wrist. DATA REPOSITORY: RADIATION DOSE DELIVERED:
--- NOTE | 2025-05-05 09:43 | DI.RAD_ITS ---
Exam(s) XR HAND LT COMPLETE EXAM: XR HAND LT COMPLETE CLINICAL HISTORY: swelling, limited ROM. TECHNIQUE: 2D digital imaging was performed. COMPARISON: CR XR HAND RT COMPLETE from 05/05/2025 FINDINGS: 3 views No evidence of acute fracture nor dislocation. Advanced degenerative changes are noted in the 1st carpometacarpal joint. Metacarpophalangeal joints appear unremarkable as do the PIP joints. There are degenerative changes in the DIP joints, most prominent in the 2nd and 3rd fingers as well as in the thumb but no obvious fractures. No radiopaque foreign bodies. IMPRESSION: Degenerative changes as described above. No fractures evident. DATA REPOSITORY: RADIATION DOSE DELIVERED:
--- NOTE | 2025-05-05 09:44 | DI.RAD_ITS ---
Exam(s) XR ELBOW RT COMPLETE EXAM: XR ELBOW RT COMPLETE CLINICAL HISTORY: unable to extend. TECHNIQUE: 2D digital imaging was performed. COMPARISON: No exams were available for comparison FINDINGS: 3 views There is a subtle cortical irregularity on the lateral aspect of the radial head, possibly small nondisplaced fracture at this level. There is elevation of the anterior fat pad consistent with joint effusion-hemarthrosis in trauma setting. There is a corticated calcific density adjacent to the outer aspect of the lateral humeral epicondyle, probably related to chronic epicondylitis. Similar findings are not seen on the opposite-medial side. There is also a small 1-2 millimeter calcific density off the medial aspect of the tip of the coronoid process of the ulna which is possibly a fracture fragment at the level of the sublime tubercle. IMPRESSION: Subtle findings at the level of the sublime tubercle of the ulnar coronoid process and on the most lateral aspect of the radial head. These may be very subtle fractures, particularly since there is a joint effusion here. DATA REPOSITORY: RADIATION DOSE DELIVERED:
--- NOTE | 2025-05-05 09:44 | DI.RAD_ITS ---
Exam(s) XR HAND RT COMPLETE EXAM: XR HAND RT COMPLETE CLINICAL HISTORY: swelling, limited ROM. TECHNIQUE: 2D digital imaging was performed. COMPARISON: None FINDINGS: 3 views No evidence of acute fracture. Advanced degenerative changes are noted in the 1st carpometacarpal joint. Metacarpophalangeal joints appear unremarkable as do the proximal interphalangeal joints. There are advanced degenerative changes in the DIP joints of the 2nd and 3rd fingers. Is somewhat difficult to adequately evaluate the DIP joint of the 2nd and 3rd fingers because they are overlapping on the lateral view. IMPRESSION: As above. If there is acute pain over the distal aspects of the 2nd-index and 3rd-middle finger is an I would recommend repeating the lateral view with separation of these fingers so that there is no overlapping bone, this allowing for better evaluation. DATA REPOSITORY: RADIATION DOSE DELIVERED:
[2025-05-05 10:39] VITALS: BP 159/74; PULSE 60; RESP 16; O2SAT 99
== END 2025-05-05 10:40 | disposition home or self-care (01) ==
PROVIDERS: Emergency Provider Physician Assistant; PCP Family Medicine
DX: M79.621 Pain in right upper arm (principal); M79.622 Pain in left upper arm; M79.641 Pain in right hand; M79.642 Pain in left hand; M25.532 Pain in left wrist; M25.421 Effusion, right elbow; M19.90 Unspecified osteoarthritis, unspecified site
CPT/HCPCS: 99284 ×2; 73030; 73080; 73110; 73130